=== PATIENT | female | born 1940 | race Caucasian/White ===

== ENCOUNTER 2022-02-15 07:24 | Inpatient (IN) | payer MEDICARE ==
--- NOTE | 2022-02-15 07:44 | ED ---
General Adult HPI - General Stated complaint: Fall Time Seen by Provider: 02/15/22 07:28 Source: patient, EMS, RN notes reviewed, old records reviewed Mode of arrival: EMS Limitations: no limitations - History of Present Illness Initial comments: 81-year-old female presents from half-way status post fall syncopal episode. Patient had apparently been using toilet to have a bowel movement and passed out striking her head. She was on the bathroom floor for approximately 30 minutes. Upon paramedics arrival they had noted a hematoma to the forehead and abrasion to the bridge of the nose. She was apparently in half-way for rehabilitation. Patient denied chest pain. Denied abdominal pain. Denies focal numbness or weakness. Initial pressure was in the 80s this responded to fluid bolus. - Related Data Allergies Allergy/AdvReac Type Severity Reaction Status Date / Time aspirin Allergy Rash/Hives Verified 02/15/22 07:40 iodine Allergy Rash/Hives Verified 02/15/22 07:43 Review of Systems ROS Statement: Those systems with pertinent positive or pertinent negative responses have been documented in the HPI. ROS Other: All systems not noted in ROS Statement are negative. General Exam Limitations: no limitations General appearance: alert, in no apparent distress Head exam: Present: other (Hematoma and abrasion to the forehead, skin avulsion to the bridge of the nose) Eye exam: Present: normal appearance, PERRL ENT exam: Present: normal exam Neck exam: Present: normal inspection, other (C-collar placed by paramedics) Respiratory exam: Present: normal lung sounds bilaterally. Absent: respiratory distress, wheezes Cardiovascular Exam: Present: regular rate, normal rhythm GI/Abdominal exam: Present: soft. Absent: distended, tenderness, guarding Extremities exam: Present: normal inspection, normal capillary refill. Absent: pedal edema, calf tenderness Neurological exam: Present: alert, oriented X3, CN II-XII intact. Absent: motor sensory deficit Psychiatric exam: Present: normal affect, normal mood Skin exam: Present: warm, dry Course Vital Signs 02/15/22 02/15/22 07:26 08:31 Temperature 97.5 F L Pulse Rate 79 85 Respiratory 16 18 Rate Blood Pressure 111/61 92/51 O2 Sat by Pulse 94 L 94 L Oximetry EKG Findings - EKG Comments: EKG Findings:: EKG: Sinus rhythm with a rate of 77, NV interval 150, QRS duration 91, QTC 404 tremor artifact predominantly in the inferior leads no ST segment elevation. Medical Decision Making - Medical Decision Making 81-year-old female presenting from half-way with syncopal episode, head injury, and hypotension. Patient was noted by paramedics to be hypotensive with head trauma. Head CT performed this is negative for intracranial hemorrhage or mass effect. Cervical spine negative for displaced fracture or subluxation. Patient has a significantly elevated white blood cell count at 23. Stable hemoglobin. She has a BUN and creatinine which are elevated, creatinine 1.71, no baseline for comparison. She has a minimally elevated troponin is 0.039. She does not have any active chest pain. This may be elevated secondary to kidney dysfunction. This level will be trended. Her chest x-ray is clear of arch consolidation. Pelvis x-ray negative for fracture or acute bony abnormality. She is started on IV hydration and IV antibiotics for suspected infection, possible urinary tract infection. She will be admitted to [facility], Gera is aware. - Lab Data Result diagrams: 02/15/22 08:03 02/15/22 08:03 Lab Results 02/15/22 02/15/22 02/15/22 Range/Units 08:03 08:03 08:03 WBC 23.4 H (3.8-10.6) k/uL RBC 4.44 (3.80-5.40) m/uL Hgb 13.7 (11.4-16.0) gm/dL Hct 41.3 (34.0-46.0) % MCV 93.1 (80.0-100.0) fL MCH 31.0 (25.0-35.0) pg MCHC 33.2 (31.0-37.0) g/dL RDW 12.7 (11.5-15.5) % Plt Count 186 (150-450) k/uL MPV 9.5 Neutrophils % 91 % Lymphocytes % 3 % Monocytes % 4 % Eosinophils % 1 % Basophils % 1 % Neutrophils # 21.3 H (1.3-7.7) k/uL Lymphocytes # 0.6 L (1.0-4.8) k/uL Monocytes # 0.9 (0-1.0) k/uL Eosinophils # 0.2 (0-0.7) k/uL Basophils # 0.3 H (0-0.2) k/uL PT 10.4 (9.0-12.0) sec INR 0.9 (<1.2) APTT 22.7 (22.0-30.0) sec Sodium 131 L (137-145) mmol/L Potassium 3.7 (3.5-5.1) mmol/L Chloride 89 L (98-107) mmol/L Carbon Dioxide 37 H (22-30) mmol/L Anion Gap 5 mmol/L BUN 67 H (7-17) mg/dL Creatinine 1.71 H (0.52-1.04) mg/dL Est GFR (CKD-EPI)AfAm 32 (>60 ml/min/1.73 sqM) Est GFR (CKD-EPI)NonAf 28 (>60 ml/min/1.73 sqM) Glucose 96 (74-99) mg/dL Plasma Lactic Acid Boyd (0.7-2.0) mmol/L Calcium 9.1 (8.4-10.2) mg/dL Magnesium 1.9 (1.6-2.3) mg/dL Total Bilirubin 0.7 (0.2-1.3) mg/dL AST 43 H (14-36) U/L ALT 54 H (4-34) U/L Alkaline Phosphatase 87 (38-126) U/L Troponin I (0.000-0.034) ng/mL Total Protein 5.9 L (6.3-8.2) g/dL Albumin 3.4 L (3.5-5.0) g/dL 02/15/22 02/15/22 Range/Units 08:03 08:03 WBC (3.8-10.6) k/uL RBC (3.80-5.40) m/uL Hgb (11.4-16.0) gm/dL Hct (34.0-46.0) % MCV (80.0-100.0) fL MCH (25.0-35.0) pg MCHC (31.0-37.0) g/dL RDW (11.5-15.5) % Plt Count (150-450) k/uL MPV Neutrophils % % Lymphocytes % % Monocytes % % Eosinophils % % Basophils % % Neutrophils # (1.3-7.7) k/uL Lymphocytes # (1.0-4.8) k/uL Monocytes # (0-1.0) k/uL Eosinophils # (0-0.7) k/uL Basophils # (0-0.2) k/uL PT (9.0-12.0) sec INR (<1.2) APTT (22.0-30.0) sec Sodium (137-145) mmol/L Potassium (3.5-5.1) mmol/L Chloride (98-107) mmol/L Carbon Dioxide (22-30) mmol/L Anion Gap mmol/L BUN (7-17) mg/dL Creatinine (0.52-1.04) mg/dL Est GFR (CKD-EPI)AfAm (>60 ml/min/1.73 sqM) Est GFR (CKD-EPI)NonAf (>60 ml/min/1.73 sqM) Glucose (74-99) mg/dL Plasma Lactic Acid Boyd 1.1 (0.7-2.0) mmol/L Calcium (8.4-10.2) mg/dL Magnesium (1.6-2.3) mg/dL Total Bilirubin (0.2-1.3) mg/dL AST (14-36) U/L ALT (4-34) U/L Alkaline Phosphatase (38-126) U/L Troponin I 0.039 H* (0.000-0.034) ng/mL Total Protein (6.3-8.2) g/dL Albumin (3.5-5.0) g/dL Disposition Clinical Impression: Dehydration, MICHAEL (acute kidney injury), Syncope, Troponin level elevated Disposition: ADMITTED IP TO THIS HOSP Condition: Stable Is patient prescribed a controlled substance at d/c from ED?: No Referrals: Francisco De Oliveira MD [Primary Care Provider] - 1-2 days Time of Disposition: 09:33
[2022-02-15] MEDS ORDERED: SODIUM CHLORIDE 0.9% 500 ML 500 ML IV ONE (08:06)
[2022-02-15 08:11] LABS: Basophils # (A) 0.3 k/uL (0-0.2); Basophils % (A) 1 %; Eosinophils # (A) 0.2 k/uL (0-0.7); Eosinophils % (A) 1 %; HCT 41.3 % (34.0-46.0); HGB 13.7 gm/dL (11.4-16.0); Lymphocytes # (A) 0.6 k/uL (1.0-4.8); Lymphocytes % (A) 3 %; MCHC 33.2 g/dL (31.0-37.0); MCV 93.1 fL (80.0-100.0); Mean Platelet Volume 9.5; Monocytes # (A) 0.9 k/uL (0-1.0); Monocytes % (A) 4 %; Neutrophils # (A) 21.3 k/uL (1.3-7.7); Neutrophils % (A) 91 %; Platelet Count 186 k/uL (150-450); RBC 4.44 m/uL (3.80-5.40); RDW 12.7 % (11.5-15.5); WBC 23.4 k/uL (3.8-10.6)
[2022-02-15 08:20] LABS: INR 0.9 (<1.2); Partial Thromboplastin Time 22.7 sec (22.0-30.0); Prothrombin Time 10.4 sec (9.0-12.0)
[2022-02-15 08:22] LABS: Albumin 3.4 g/dL (3.5-5.0); Calcium 9.1 mg/dL (8.4-10.2); Magnesium 1.9 mg/dL (1.6-2.3); Potassium 3.7 mmol/L (3.5-5.1); Total Bilirubin 0.7 mg/dL (0.2-1.3); Total Protein 5.9 g/dL (6.3-8.2)
[2022-02-15] MEDS ORDERED: cefTRIAXone IN SWFI 1,000 MG/10 ML SYRINGE IVP STA (08:45)
--- NOTE | 2022-02-15 08:53 | CT ---
EXAMINATION TYPE: CT brain [facility]tega DATE OF EXAM: 02/15/2022 COMPARISON: None available HISTORY: Trauma, Fall CT DLP: 1372.3 mGycm Automated exposure control for dose reduction was used. TECHNIQUE: CT scan of the head and cervical spine are performed without contrast. FINDINGS: Brain: Bilateral cerebral periventricular and subcortical white matter hypodensities likely representing chr onic microvascular ischemic changes. Scattered arterial atherosclerotic calcification. Brain volume l oss changes, likely age-related. No acute intracranial hemorrhage or gross acute cortical infarct. No midline shift or herniation. Unremarkable basal cisterns, sella and CP angles. No gross space-occupying lesion or mass effect. No gross orbital abnormality. Right frontal scalp swelling/hematoma. Mild mucosal thickening of the left maxillary sinus and left anterior ethmoid air cells. Clear mastoid air cells. Diffuse osteopenia. No definite acute calvarial bone fracture identified. Cervical spine: Osteopenia. T5 vertebral body collapse, not completely included scan and possibly chronic, please cor relate clinically. Questionable subtle linear lucency at the most anterior superior aspect of C7 vert ebral body which could represent an artifact or a subtle nondisplaced fracture. This could be acute o r chronic. No other definite vertebral body collapse or acute displaced fracture. Unremarkable atlantoaxial and atlantooccipital articulations. No facet dislocation or significant sub luxation. Degenerative changes of the cervical spine with multilevel opposing endplate osteophytosis, degenerated discs and uncovertebral osteoarthropathy, most evident at C5-6 and C6-7 levels. Severe m ultilevel facet osteoarthropathy is also noted. Anterolisthesis of C3 over C4, C4 over C5 and C7 over T1, likely degenerative. Right C3-4, severe rig ht C4-5, severe left C5-6 and moderate bilateral 6 7 neuroforaminal stenosis. Mild bony spinal canal stenosis is seen at C6-7 level. Questionable focal bulge measuring 6 mm arising from the left vocal c ord, for ENT consultation. Scattered arterial atherosclerotic calcifications. COPD changes are seen i n the lung apex bilaterally. IMPRESSION: 1. No acute intracranial posttraumatic sequela or acute calvarial bone fracture. 2. Small right frontal scalp swelling/hematoma. 3. Brain volume loss changes and chronic microvascular ischemic changes as described above. 4. T5 vertebral body collapse, apparently chronic, please correlate clinically. 5. Questionable artifact versus subtle nondisplaced fracture of the anterior superior aspect of C7 ve rtebral body, which could be acute or chronic, please correlate clinically. 5. No other definite traumatic bony injury of the cervical spine. 6. Suspected small lesion arising from the left vocal cord which could represent a polyp however othe r neoplastic lesion cannot be excluded. Recommend ENT consultation. 7. Degenerative changes of cervical spine and other incidental findings as described above.
--- NOTE | 2022-02-15 08:55 | XR ---
EXAMINATION TYPE: XR chest 1V portable DATE OF EXAM: 02/15/2022 COMPARISON: None INDICATION: Syncope fall TECHNIQUE: Single frontal view of the chest is obtained. FINDINGS: The heart size is normal. The pulmonary vasculature is normal. The lungs are clear. There is some hyperinflation present. No acute fractures are evident. No pneumothorax is evident. IMPRESSION: 1. No acute posttraumatic change. 2. No acute pulmonary process.
--- NOTE | 2022-02-15 08:55 | XR ---
EXAMINATION TYPE: XR pelvis AP view DATE OF EXAM: 02/15/2022 COMPARISON: None HISTORY: Fall, pain TECHNIQUE: AP pelvis FINDINGS: Femoral heads articulate with the acetabulum. Mild joint space narrowing is present. Symphy sis pubis and sacroiliac joints are normal. Nonspecific bowel gas is present within the pelvis. No ac [place] fractures or dislocations are evident. IMPRESSION: 1. No acute osseous abnormality. Pelvis.
[2022-02-15] MEDS ORDERED: NALOXONE 0.4 MG/ML 1 ML VIAL IV PRN ×2 (09:25→11:22)
[2022-02-15] MEDS ORDERED: MORPHINE SULFATE 4 MG/ML SYRINGE IV PRN (09:25)
[2022-02-15 10:13] LABS: Appearance,Urine Cloudy (Clear); Bacteria,Urine Rare /hpf; Bilirubin,Urine Negative (Negative); Blood,Urine Trace (Negative); Color,Urine Yellow; Glucose,Urine (UA) Negative (Negative); Granular Casts,Urine 3 /lpf (0); Hyaline Casts,Urine 38 /lpf (0-2); Ketones,Urine Negative (Negative); Leukocyte Esterase,Urine Negative (Negative); Mucus,Urine Rare /hpf; Nitrite,Urine Negative (Negative); Protein,Urine Trace (Negative); RBC,Urine 1 /hpf (0-5); Specific Gravity,Urine 1.017 (1.001-1.035); Urobilinogen,Urine <2.0 mg/dL (<2.0); WBC,Urine 3 /hpf (0-5)
[2022-02-15] MEDS: SODIUM CHLORIDE 0.9% 1,000 ML IV SCH ×2 (10:14→18:50)
[2022-02-15] MEDS ORDERED: LACTATED RINGERS 1,000 ML IV SCH (11:30)
--- NOTE | 2022-02-15 11:47 | P.HPIM ---
History of Present Illness Chief Complaint: Loss of consciousness This is a very pleasant 81-year-old female who was brought to [facility] Department by EMS for evaluation of syncope. Patient has history of COPD on home oxygen, hypertension, hypothyroidism. Home medications include Norvasc, lisinopril, Cardizem, Plavix, inhale corticosteroids, dilators and levothyroxine. Patient states that about a week ago she was admitted at [facility] in [place] for respiratory issues, COPD exacerbation. About 3 days prior to this admission she was discharged to senior care facility on Lasix prednisone, and antibiotics. Prior to that she would typically not take Lasix. Patient states that she was in usual state of health yesterday until in the evening she had a fish sandwich. After that overnight she started experiencing some cramping in the lower part of her abdomen. She did not have any diarrhea. She denies any fever or chills or any respiratory complaints. No dysuria or foul-smelling urine or hematuria. This morning she went to the bathroom and experienced nausea and was retching, no vomiting when she started feeling l ightheaded with hot flashes and she collapsed and blacked out. Since she's been residing in a senior care facility, EMS was called and she was transferred to ER. En route, EMS measure her systolic blood pressure 7080s. She was given bolus of IV fluids which led to quick improvement in her blood pressure. Patient stated that she did not lose consciousness completely, just feeling very lightheaded. She was not having any confusion. She did not have any involuntary movement of bowels or incontinence of urine. No tongue biting no seizure-like activity described. She denies any headache vision changes scintillations chest pain or palpitations before and after the event. During my interview patient stated that she is currently feeling much better after IV fluids and does not have any complaints. She unfortunately hurt her head with this fall and she does have small hematoma on the right side of her forehead but she currently denies any headache or vision changes. In the emergency department, found to have a blood cell count 24,000 with predominance of neutrophils. Stable hemoglobin. Creatinine of 1.7 beats BUNs of 67 normal anion gap serum bicarbonate of 37 and sodium 10/30/1929 and chloride of 89. Patient denied any previous history of renal insufficiency. Imaging: CT of the head without any acute intracranial changes. She does have small right frontal scalp hematoma. CT of the cervical and thoracic spine showing T5 vertebral body collapse chronically in nature. Questionable artifact versus subtle nondisplaced fracture and C7 vertebral body which could be acute or chronic clinical correlation advised. Other changes as per report Review of Systems Review of system is negative except as mentioned in HPI Past Medical History Past Medical History: Cancer, COPD, GERD/Reflux, Hyperlipidemia, Hypertension, Myocardial Infarction ([place]), Thyroid Disorder, Vascular Disorder Additional Past Medical History / Comment(s): Raynaud's syndrome, glaucoma, osteoporpsos, SVT, breast cancer History of Any Multi-Drug Resistant Organisms: None Reported Additional Past Surgical History / Comment(s): lumpectomy in left breast "long time ago" Past Psychological History: Anxiety Smoking Status: Former smoker Past Alcohol Use History: None Reported Past Drug Use History: None Reported Medications and Allergies Home Medications Medication Instructions Recorded Confirmed Type ALPRAZolam [Xanax] 0.25 mg PO Q8H PRN 02/15/22 02/15/22 History Acetaminophen Tab [Tylenol] 650 mg PO Q4H PRN MDD 3000mg 02/15/22 02/15/22 History Albuterol Sulfate [Ventolin HFA] 2 puff INHALATION RT-DAILY 02/15/22 02/15/22 History Atorvastatin [Lipitor] 40 mg PO HS 02/15/22 02/15/22 History Benzonatate [Tessalon Perles] 200 mg PO Q8H PRN 02/15/22 02/15/22 History Budesonide [Pulmicort] 0.5 mg INHALATION RT-Q12H 02/15/22 02/15/22 History Calcium Carbonate [Tums] 500 mg PO Q4H PRN 02/15/22 02/15/22 History Clopidogrel Bisulfate [Plavix] 75 mg PO DAILY 02/15/22 02/15/22 History Diltiazem Cd [Cardizem CD] 180 mg PO DAILY 02/15/22 02/15/22 History Docusate [Colace] 100 mg PO Q12H PRN 02/15/22 02/15/22 History Doxycycline Monohydrate [Monodox] 100 mg PO BID 02/15/22 02/15/22 History Fluticasone Nasal [place] [Flonase 1 spr EA NOSTRIL DAILY 02/15/22 02/15/22 History Nasal [place]] Fluticasone/Vilanterol [Breo 1 puff INHALATION RT-DAILY 02/15/22 02/15/22 History Ellipta 100-25 Mcg Inhaler] Formoterol Fumarate Capsule 12mcg 1 cap INHALATION RT-BID 02/15/22 02/15/22 History Inhaler Furosemide [Lasix] 20 mg PO BID 02/15/22 02/15/22 History Latanoprost [Xalatan 0.005%] 1 drop BOTH EYES HS 02/15/22 02/15/22 History Levothyroxine Sodium [Levoxyl] 50 mcg PO DAILY 02/15/22 02/15/22 History Lisinopril [Prinivil] 10 mg PO DAILY 02/15/22 02/15/22 History Montelukast [Singulair] 10 mg PO HS 02/15/22 02/15/22 History Naproxen 500 mg PO Q12H PRN 02/15/22 02/15/22 History Nystatin [Nystatin Oral Susp] 500,000 unit PO QID 02/15/22 02/15/22 History Pantoprazole [Protonix] 40 mg PO DAILY 02/15/22 02/15/22 History Tiotropium [place] [Spiriva] 1 cap INHALATION RT-DAILY 02/15/22 02/15/22 History amLODIPine [Norvasc] 5 mg PO DAILY 02/15/22 02/15/22 History guaiFENesin [guaiFENesin Oral 200 mg PO HS PRN 02/15/22 02/15/22 History Solution] methylPREDNISolone [Medrol Dose See Taper PO DIRECTED 02/15/22 02/15/22 History Pack] Allergies Allergy/AdvReac Type Severity Reaction Status Date / Time aspirin Allergy Rash/Hives Verified 02/15/22 10:40 iodine Allergy Rash/Hives--"surgical Verified 02/15/22 10:40 soap" per patient Physical Exam Vitals: Vital Signs Temp Pulse Resp BP Pulse Ox 02/15/22 10:13 81 18 110/67 100 02/15/22 08:31 85 18 92/51 94 L 02/15/22 07:26 97.5 F L 79 16 111/61 94 L Intake and Output 02/14/22 02/15/22 02/15/22 22:59 06:59 14:59 Other: Weight 59.058 kg Awake alert oriented 3 Head and neck: Small right sided frontal scalp hematoma no skull depressions or excoriations Anicteric sclera and oropharyngeal mucosa moist without any lesions no neck masses no JVD Neck supple without any point tenderness without rigidity Lungs: Clear to auscultation Cardiovascular: Regular rhythm and rate S1 posterior Abdomen: Bowel sounds present throughout, abdomen is soft nontender nondistended no organomegaly no masses, no suprapubic tenderness no flank tenderness right upper quadrant tenderness Extremities: No peripheral edema no cyanosis warm well perfused DP pulses present bilateral Musculoskeletal: No deformities Neurological: Awake alert oriented 3, cranial nerves II through XII intact, motor strength is 5 out of 5 in upper and lower extremities proximally and distally, no ankle clonus , nontender reflexes laxer bilateral, sensitivity to light touch in upper limits immitis preserved no asterixis [id number] intact Results CBC & Chem 7: 02/15/22 08:03 02/15/22 08:03 Labs: Abnormal Lab Results - Last 24 Hours (Table) 02/15/22 02/15/22 02/15/22 Range/Units 08:03 08:03 08:03 WBC 23.4 H (3.8-10.6) k/uL Neutrophils # 21.3 H (1.3-7.7) k/uL Lymphocytes # 0.6 L (1.0-4.8) k/uL Basophils # 0.3 H (0-0.2) k/uL Sodium 131 L (137-145) mmol/L Chloride 89 L (98-107) mmol/L Carbon Dioxide 37 H (22-30) mmol/L BUN 67 H (7-17) mg/dL Creatinine 1.71 H (0.52-1.04) mg/dL AST 43 H (14-36) U/L ALT 54 H (4-34) U/L Troponin I 0.039 H* (0.000-0.034) ng/mL Total Protein 5.9 L (6.3-8.2) g/dL Albumin 3.4 L (3.5-5.0) g/dL Urine Appearance (Clear) Urine Protein (Negative) Urine Blood (Negative) Urine Bacteria (None) /hpf Hyaline Casts (0-2) /lpf Urine Mucus (None) /hpf 02/15/22 Range/Units 09:35 WBC (3.8-10.6) k/uL Neutrophils # (1.3-7.7) k/uL Lymphocytes # (1.0-4.8) k/uL Basophils # (0-0.2) k/uL Sodium (137-145) mmol/L Chloride (98-107) mmol/L Carbon Dioxide (22-30) mmol/L BUN (7-17) mg/dL Creatinine (0.52-1.04) mg/dL AST (14-36) U/L ALT (4-34) U/L Troponin I (0.000-0.034) ng/mL Total Protein (6.3-8.2) g/dL Albumin (3.5-5.0) g/dL Urine Appearance Cloudy H (Clear) Urine Protein Trace H (Negative) Urine Blood Trace H (Negative) Urine Bacteria Rare H (None) /hpf Hyaline Casts 38 H (0-2) /lpf Urine Mucus Rare H (None) /hpf Assessment and Plan Assessment: #Fall and presyncope Patient presents with hypotension, component of vasovagal reaction, orthostasis in the setting of diuresis dehydration multiple blood pressure medications Rule out sepsis, septic workup underway Improving with IV fluids Continue IV fluids Hold blood pressure medications, hold Lasix Check d-dimer #SIRS, leukocytosis rule out sepsis Reactive due to use of systemic steroids and dehydration Septic workup, blood cultures UA with cultures Chest x-ray without acute findings Imaging of the abdomen will be needed due to some discomfort Continue antibiotics, infectious disease consultation #Elevated troponin No active chest pain No acute EKG findings The patient asymptomatic trendtroponin, cardiology consultation Echocardiogram Keep on telemetry Continue home Plavix, CT of the head no active bleeding #Acute kidney injury Suspected to be prerenal Continue IV fluids UA: No significant proteinuria no RBCs or WBCs Ultrasound of the kidneys, bladder scan Nephrology consultation #Chronic hypoxic respiratory failure COPD without acute exacerbation, on home oxygen 34 liters Continue oxygen, continue nebulizers #Elevated liver enzymes Normal bilirubin and alkaline phosphatase Trend liver enzymes, may need ultrasound #Abdominal cramping X-ray of abdomen ordered, consider to escalate imaging #Closed head trauma Due to fall CT of the head and cervical spine obtained Consider or to/neurosurgery consult #Hypothyroidism Continue levothyroxine #Hypertension Hold home blood pressure medications due to hypotension DVT prophylaxis SCDs Patient will need more than 2 minutes hospital stay
--- NOTE | 2022-02-15 14:33 | XR ---
EXAMINATION TYPE: XR abdomen complete w decub DATE OF EXAM: 02/15/2022 COMPARISON: None INDICATION: Abdomen pain with nausea TECHNIQUE: Abdomen is examined in the upright and supine views . A decubitus view is obtained which a ppear somewhat oblique. FINDINGS: There is a normal bowel gas pattern. No suspicious air-fluid levels are evident. No free air is evide nt. No mass effect is evident. Psoas margins are normal. No organomegaly is present. Vertebroplasty of L2 is evident. Minimal right pleural effusion may be present. IMPRESSION: 1. Nonspecific abdomen. 2. Minimal right pleural effusion
[2022-02-15] MEDS: AMPICILLIN-SULBACTAM 3 GM in SODIUM CHLORIDE 0.9% 100 ML IVPB SCH ×3 (15:41→23:15)
[2022-02-15] MEDS: MIDODRINE 5 MG TAB PO SCH (18:50)
[2022-02-15] MEDS: MONTELUKAST 10 MG TAB PO SCH (19:59)
[2022-02-15] MEDS: LATANOPROST 0.005% OPHTH DROPS 2.5 ML BTL BOTH EYES SCH (19:59)
[2022-02-15] MEDS: BUDESONIDE 0.5 MG/2 ML NEBU INHALATION SCH (20:45)
[2022-02-15] MEDS ORDERED: ATORVASTATIN 40 MG TAB PO SCH (21:00)
[2022-02-15] MEDS: IPRATROPIUM-ALBUTEROL 3 ML NEB INHALATION PRN (23:21)
--- NOTE | 2022-02-16 00:01 | P.CONS ---
History of Present Illness - Reason for Consult Consult date: 02/15/22 Sepsis Requesting physician: Dwight Gilman - Chief Complaint Abdominal bloating and pain x one day - History of Present Illness Patient is 81-year female presenting to the ER after apparently the patient did have a fall/syncopal episode, patient mention she was having some gas pain and apparently did get some medication without relief patient mention she went to the bathroom to have a bowel movement and apparently the patient did passed out patient was on the bathroom floor for approximately 30 minutes EMS was called and patient was noticed to have a hematoma to the forehead and abrasion to the bridge of the nose patient subsequently was brought into the ER on arrival to the ER patient was afebrile and no fever had been recorded subsequently patient did have white count of 23,000 with a left shift BUN and creatinine has been elevated liver exams are mildly elevated urine was not significantly positive patient did have a CT of the head that was negative for any bleed chest x-ray no acute pulmonary process patient also have abdominal x- ray nonspecific abdominal minimal right pleural effusion patient was admitted to the hospital infectious disease was consulted concerning for sepsis because of elevated white count patient is currently complaining of some abdominal discomfort more of a dull aching pain unable to quantify it any further did have some nausea but no vomiting has been complaining of constipation no diarrhea and no urinary symptoms Review of Systems Positive point has been mentioned in the HPI rest of the systems are negative Past Medical History Past Medical History: Cancer, COPD, GERD/Reflux, Hyperlipidemia, Hypertension, Myocardial Infarction ([place]), Thyroid Disorder, Vascular Disorder Additional Past Medical History / Comment(s): Raynaud's syndrome, glaucoma, osteoporpsos, SVT, breast cancer Last Myocardial Infarction Date:: 2006 History of Any Multi-Drug Resistant Organisms: None Reported Past Surgical History: Appendectomy, Hysterectomy, Tonsillectomy Additional Past Surgical History / Comment(s): lumpectomy in left breast "long time ago" Past Anesthesia/Blood Transfusion Reactions: No Reported Reaction Smoking Status: Former smoker - Past Family History Daughter(s) Family Medical History: Cancer Medications and Allergies Home Medications Medication Instructions Recorded Confirmed Type ALPRAZolam [Xanax] 0.25 mg PO Q8H PRN 02/15/22 02/15/22 History Acetaminophen Tab [Tylenol] 650 mg PO Q4H PRN MDD 3000mg 02/15/22 02/15/22 History Albuterol Sulfate [Ventolin HFA] 2 puff INHALATION RT-DAILY 02/15/22 02/15/22 History Atorvastatin [Lipitor] 40 mg PO HS 02/15/22 02/15/22 History Benzonatate [Tessalon Perles] 200 mg PO Q8H PRN 02/15/22 02/15/22 History Budesonide [Pulmicort] 0.5 mg INHALATION RT-Q12H 02/15/22 02/15/22 History Calcium Carbonate [Tums] 500 mg PO Q4H PRN 02/15/22 02/15/22 History Clopidogrel Bisulfate [Plavix] 75 mg PO DAILY 02/15/22 02/15/22 History Diltiazem Cd [Cardizem CD] 180 mg PO DAILY 02/15/22 02/15/22 History Docusate [Colace] 100 mg PO Q12H PRN 02/15/22 02/15/22 History Doxycycline Monohydrate [Monodox] 100 mg PO BID 02/15/22 02/15/22 History Fluticasone Nasal [place] [Flonase 1 spr EA NOSTRIL DAILY 02/15/22 02/15/22 History Nasal [place]] Fluticasone/Vilanterol [Breo 1 puff INHALATION RT-DAILY 02/15/22 02/15/22 History Ellipta 100-25 Mcg Inhaler] Formoterol Fumarate Capsule 12mcg 1 cap INHALATION RT-BID 02/15/22 02/15/22 History Inhaler Furosemide [Lasix] 20 mg PO BID 02/15/22 02/15/22 History Latanoprost [Xalatan 0.005%] 1 drop BOTH EYES HS 02/15/22 02/15/22 History Levothyroxine Sodium [Levoxyl] 50 mcg PO DAILY 02/15/22 02/15/22 History Lisinopril [Prinivil] 10 mg PO DAILY 02/15/22 02/15/22 History Montelukast [Singulair] 10 mg PO HS 02/15/22 02/15/22 History Naproxen 500 mg PO Q12H PRN 02/15/22 02/15/22 History Nystatin [Nystatin Oral Susp] 500,000 unit PO QID 02/15/22 02/15/22 History Pantoprazole [Protonix] 40 mg PO DAILY 02/15/22 02/15/22 History Tiotropium [place] [Spiriva] 1 cap INHALATION RT-DAILY 02/15/22 02/15/22 History amLODIPine [Norvasc] 5 mg PO DAILY 02/15/22 02/15/22 History guaiFENesin [guaiFENesin Oral 200 mg PO HS PRN 02/15/22 02/15/22 History Solution] methylPREDNISolone [Medrol Dose See Taper PO DIRECTED 02/15/22 02/15/22 History Pack] Allergies Allergy/AdvReac Type Severity Reaction Status Date / Time aspirin Allergy Rash/Hives Verified 02/15/22 10:40 iodine Allergy Rash/Hives--"surgical Verified 02/15/22 10:40 soap" per patient Physical Exam Vitals: Vital Signs Temp Pulse Pulse Resp BP BP Pulse Ox 02/15/22 12:00 97.8 F 91 20 100/59 97 02/15/22 11:30 71 18 100/66 97 02/15/22 10:13 81 18 110/67 100 02/15/22 08:31 85 18 92/51 94 L 02/15/22 07:26 97.5 F L 79 16 111/61 94 L Intake and Output 02/14/22 02/15/22 02/15/22 22:59 06:59 14:59 Other: Weight 59.058 kg GENERAL DESCRIPTION: Elderly female lying in bed, no distress. No tachypnea or accessory muscle of respiration use. HEENT: Shows Pallor , no scleral icterus. Oral mucous membrane is dry. No pharyngeal erythema or thrush NECK: Trachea central, no thyromegaly. LUNGS: Unlabored breathing. Clear to auscultation anteriorly. No wheeze or cr ackle. HEART: S1, S2, regular rate and rhythm. No loud murmur ABDOMEN: Soft, mild abdominal distention and tenderness EXTREMITIES: No edema of feet. SKIN: No rash, no masses palpable. NEUROLOGICAL: The patient is awake, alert, oriented x3, mood and affect normal. Results CBC & Chem 7: 02/15/22 08:03 02/15/22 08:03 Labs: Abnormal Lab Results - Last 24 Hours (Table) 02/15/22 02/15/22 02/15/22 Range/Units 08:03 08:03 08:03 WBC 23.4 H (3.8-10.6) k/uL Neutrophils # 21.3 H (1.3-7.7) k/uL Lymphocytes # 0.6 L (1.0-4.8) k/uL Basophils # 0.3 H (0-0.2) k/uL Sodium 131 L (137-145) mmol/L Chloride 89 L (98-107) mmol/L Carbon Dioxide 37 H (22-30) mmol/L BUN 67 H (7-17) mg/dL Creatinine 1.71 H (0.52-1.04) mg/dL AST 43 H (14-36) U/L ALT 54 H (4-34) U/L Troponin I 0.039 H* (0.000-0.034) ng/mL Total Protein 5.9 L (6.3-8.2) g/dL Albumin 3.4 L (3.5-5.0) g/dL Urine Appearance (Clear) Urine Protein (Negative) Urine Blood (Negative) Urine Bacteria (None) /hpf Hyaline Casts (0-2) /lpf Urine Mucus (None) /hpf 02/15/22 Range/Units 09:35 WBC (3.8-10.6) k/uL Neutrophils # (1.3-7.7) k/uL Lymphocytes # (1.0-4.8) k/uL Basophils # (0-0.2) k/uL Sodium (137-145) mmol/L Chloride (98-107) mmol/L Carbon Dioxide (22-30) mmol/L BUN (7-17) mg/dL Creatinine (0.52-1.04) mg/dL AST (14-36) U/L ALT (4-34) U/L Troponin I (0.000-0.034) ng/mL Total Protein (6.3-8.2) g/dL Albumin (3.5-5.0) g/dL Urine Appearance Cloudy H (Clear) Urine Protein Trace H (Negative) Urine Blood Trace H (Negative) Urine Bacteria Rare H (None) /hpf Hyaline Casts 38 H (0-2) /lpf Urine Mucus Rare H (None) /hpf Assessment and Plan (1) Leukocytosis Current Visit: Yes Status: Acute Code(s): D72.829 - ELEVATED WHITE BLOOD CELL COUNT, UNSPECIFIED SNOMED Code(s): 966044071 Plan: 1patient presented to hospital with a syncopal episode this patient did have a fall in the bathroom prior to that the patient was complaining of abdominal bloating and gas patient did have mild distention and slightly tender likely concerning for abdominal source and will need to cover for the enteric gram- negative katharine 2-we will start the patient on Unasyn 3 g every 6 hours- 3-we will check CT of abdominal pelvis with oral contrast only because of elevated creatinine and no use of IV contrast 4-gentle IV fluid We will follow on clinical condition and cultures to further adjust medication if needed Thank you for this consultation will follow this patient along with you Time with Patient: Greater than 30
[2022-02-16] MEDS: SODIUM CHLORIDE 0.9% 1,000 ML IV SCH ×2 (02:28→18:44)
[2022-02-16] MEDS: BARIUM SULFATE 450 ML ORAL.SUSP BOTTLE PO PRN ×2 (04:06→06:52)
[2022-02-16] MEDS: AMPICILLIN-SULBACTAM 3 GM in SODIUM CHLORIDE 0.9% 100 ML IVPB SCH ×3 (06:08→23:10)
[2022-02-16] MEDS ORDERED: LEVOTHYROXINE 50 MCG TAB PO SCH (06:30)
[2022-02-16 06:38] LABS: Basophils % (A) 0 %; Eosinophils # (A) 0.1 k/uL (0-0.7); Eosinophils % (A) 0 %; HCT 33.1 % (34.0-46.0); HGB 11.1 gm/dL (11.4-16.0); Lymphocytes # (A) 0.5 k/uL (1.0-4.8); Lymphocytes % (A) 4 %; MCHC 33.6 g/dL (31.0-37.0); MCV 95.2 fL (80.0-100.0); Mean Platelet Volume 8.6; Monocytes # (A) 0.7 k/uL (0-1.0); Monocytes % (A) 6 %; Neutrophils # (A) 10.4 k/uL (1.3-7.7); Neutrophils % (A) 88 %; Platelet Count 140 k/uL (150-450); RBC 3.48 m/uL (3.80-5.40); RDW 13.6 % (11.5-15.5); WBC 11.7 k/uL (3.8-10.6)
[2022-02-16 06:49] LABS: ALT 50 U/L (4-34); AST 43 U/L (14-36); African American GFR (CKD) 70 (>60 ml/min/1.73 sqM); Albumin 2.6 g/dL (3.5-5.0); Alkaline Phosphatase 71 U/L (38-126); Anion Gap 2 mmol/L; Blood Urea Nitrogen 38 mg/dL (7-17); Calcium 8.3 mg/dL (8.4-10.2); Carbon Dioxide 32 mmol/L (22-30); Chloride 102 mmol/L (98-107); Glucose 68 mg/dL (74-99); Magnesium 1.8 mg/dL (1.6-2.3); Non-African American GFR(CKD) 61 (>60 ml/min/1.73 sqM); Phosphorus 2.4 mg/dL (2.5-4.5); Potassium 3.6 mmol/L (3.5-5.1); Sodium 136 mmol/L (137-145); Total Bilirubin 0.5 mg/dL (0.2-1.3); Total Protein 4.9 g/dL (6.3-8.2)
[2022-02-16] MEDS: BUDESONIDE 0.5 MG/2 ML NEBU INHALATION SCH ×2 (08:18→21:42)
[2022-02-16] MEDS: PANTOPRAZOLE 40 MG TABLET PO SCH (08:22)
[2022-02-16] MEDS: CLOPIDOGREL 75 MG TAB PO SCH (08:22)
[2022-02-16] MEDS: MIDODRINE 5 MG TAB PO SCH ×2 (08:22→17:04)
[2022-02-16] MEDS ORDERED: FUROSEMIDE 10 MG/ML 4 ML VIAL IV STA (08:50)
--- NOTE | 2022-02-16 08:59 | CT ---
EXAMINATION TYPE: CT abdomen pelvis wo con DATE OF EXAM: 02/16/2022 COMPARISON: No previous CT scan is available for comparison HISTORY: Abdominal pain. CT DLP: 462.7 mGycm Automated exposure control for dose reduction was used. TECHNIQUE: Helical acquisition of images was performed from the lung bases through the pelvis. FINDINGS: LUNG BASES: No significant abnormality is appreciated. LIVER/GB: Questionable gallbladder sludge. Unremarkable liver. PANCREAS: Small and atrophic. SPLEEN: No significant abnormality is seen. ADRENALS: Unremarkable right adrenal. Heterogeneous density with fat density seen involving the left adrenal gland measuring up to 3.3 cm could represent a myelolipoma. KIDNEYS: 3 mm nonobstructing calculus is seen at the upper pole of the right kidney. Bilateral perine phric fat stranding and reactive fluid, nonspecific. Unremarkable kidneys otherwise. No hydroureter o r hydronephrosis. FREE AIR: No free air is visualized RETROPERITONEAL ADENOPATHY: None visualized REPRODUCTIVE ORGANS: Previous hysterectomy. No gross adnexal mass. URINARY BLADDER: No significant abnormality is seen. PELVIC ADENOPATHY: None visualized. OSSEOUS STRUCTURES: Diffuse osteopenia. Suspected previous vertebroplasty of L2 vertebral body. Mild upper endplate depression of L2 vertebral body with mild spinal canal stenosis is seen at that level . BOWEL: Unremarkable nondistended stomach, duodenum and small bowel. No evidence of bowel obstruction . Severe diverticulosis of the sigmoid colon with thickened wall, please correlate with colonoscopy r esults. Mild wall thickening of the cecum and ascending colon. Ileocecal junction lipoma measuring 2. 4 cm. OTHER: Arterial atherosclerotic calcifications. No sizable ascites. Very small fat-containing umbilic al hernia. Abdominal wall subcutaneous densities, please correlate for recent subcutaneous injections . IMPRESSION: No obvious acute abnormality seen in the abdomen or the pelvis. Mild wall thickening of the ascending colon with severe diverticulosis and wall thickening of the sigmoid colon, recommend correlation wit h elective colonoscopy results. Other findings as described above.
[2022-02-16 09:43] LABS: T4, Free (Free Thyroxine) 1.53 ng/dL (0.78-2.19)
--- NOTE | 2022-02-16 09:48 | XR ---
EXAMINATION TYPE: XR chest 1V portable DATE OF EXAM: 02/16/2022 HISTORY: Shortness of breath. COMPARISON: 02/15/22 TECHNIQUE: Single view of the chest is submitted. FINDINGS: Demonstrated are scattered senescent parenchymal change. There is no evidence for focal infiltrate. The heart is stable. Hilar and mediastinal structures are within normal limits. Degenerative changes are seen of the dorsal spine. IMPRESSION: 1. Chronic changes without evidence for acute pulmonary disease.
--- NOTE | 2022-02-16 10:00 | CA ---
Transthoracic Echo Report Name: Penelope Louis Age: 81 Gender: F : 1940 Exam Date: 02/15/2022 13:02 Exam Location: [facility] Ht (in): 64 Wt (lb): 130 Ordering Physician: Dwight Gilman MD Attending/Referring Phys: Cigarette Maker Nadia Cantu RDCS Procedure CPT: Indications: elevatedtrop, syncope Cardiac Hx: Technical Quality: Fair Contrast 1: Total Dose (mL): Contrast 2: Total Dose (mL): MEASUREMENTS (Male / Female) Normal Values 2D ECHO LV Diastolic Diameter PLAX 3.7 cm 4.2 - 5.9 / 3.9 - 5.3 cm LV Systolic Diameter PLAX 2.4 cm IVS Diastolic Thickness 1.2 cm 0.6 - 1.0 / 0.6 - 0.9 cm LVPW Diastolic Thickness 1.2 cm 0.6 - 1.0 / 0.6 - 0.9 cm LV Relative Wall Thickness 0.7 RV Internal Dim ED PLAX 2.7 cm M-MODE Aortic Root Diameter MM 3.1 cm MV E Point Septal Separation 0.5 cm AV Cusp Separation MM 1.9 cm DOPPLER AV Peak Velocity 123.1 cm/s AV Peak Gradient 6.1 mmHg MV Area PHT 2.4 cm Mitral E Point Velocity 69.6 cm/s Mitral A Point Velocity 147.8 cm/s Mitral E to A Ratio 0.5 MV Deceleration Time 314.2 ms MV E' Velocity 5.3 cm/s Mitral E to MV E' Ratio 13.1 TR Peak Velocity 251.5 cm/s TR Peak Gradient 25.3 mmHg Right Ventricular Systolic Press 33.5 mmHg FINDINGS Left Ventricle Left ventricular ejection fraction is estimated at 55-60 %, Mildly increased left ventricular wall thickness. left ventricular cavity size normal. Right Ventricle Normal right ventricular size. Borderline PHTN Right Atrium Normal right atrial size. Left Atrium Normal left atrial size. Mitral Valve Mitral annular calcification. Aortic Valve Trileaflet aortic valve. Thickened aortic valve without stenosis. Tricuspid Valve Mild tricuspid regurgitation. Pulmonic Valve Pulmonic valve not well visualized. Pericardium No pericardial effusion. Aorta Normal size aortic root and proximal ascending aorta. CONCLUSIONS #1. Mild left ventricle, concentric hypertrophy with preserved LV function. #2. Mitral annular calcification and thickened aortic valve leaflets. #3. Mild tricuspid regurgitation. #4. No pericardial effusion Previewed by: Dr. Nathan Anderson MD (Electronically Signed) Final Date: 16 February 2022 09:59
--- NOTE | 2022-02-16 10:08 | P.CNOR ---
History of Present Illness - [facility] Consult date: 02/16/22 Requesting physician: Dwight Gilman Consult reason: other (Potential C7 fx) History of present illness: Patient is an 81-year-old female with a history of COPD, hypertension, hypoth yroidism who presents to the emergency department [facility] Gao yesterday status post fall at [facility]. Patient says she was on the toilet when she passed out and hit her head. EMS brought patient in the hospital and mention that she had a hematoma to her forehead abrasion. Patient says about a week ago she was at [facility] for shortness of breath. Patient was seen at bedside this morning resting comfortably lying in semirecumbent position. Patient says yesterday she was in the bathroom when she began to feel nauseous as well as lightheaded she fainted and hit the floor. Patient says since coming the hospital she is being to feel a little bit weaker in her lower extremities. Patient says she is having pain mostly in her abdomen and she feels bloated at this time. Patient also mentions she does have some neck pain. Patient says she normally ambulates without a cane/walker, however, since she has been in the hospital patient feels too weak to stand under her own power. Patient says she previously had kyphoplasty of L1 and L2 she thinks about several years ago at [facility]. Patient denies any other previous orthopedic surgical history. CT of head/cervical spine does show is suspecting as anterior superior nondisplaced fracture C7 vertebral body and T5 vertebral body collapse. Patient denies chest pain, fever, shortness of breath, change in vision, loss of bowel/bladder control. Patient denies any perineal numbness/saddle anesthesia. Patient denies any lower extremity radiculopathy Past Medical History Past Medical History: Cancer, COPD, GERD/Reflux, Hyperlipidemia, Hypertension, Myocardial Infarction ([place]), Thyroid Disorder, Vascular Disorder Additional Past Medical History / Comment(s): Raynaud's syndrome, glaucoma, osteoporpsos, SVT, breast cancer Last Myocardial Infarction Date:: 2006 History of Any Multi-Drug Resistant Organisms: None Reported Past Surgical History: Appendectomy, Hysterectomy, Tonsillectomy Additional Past Surgical History / Comment(s): lumpectomy in left breast "long time ago" Past Anesthesia/Blood Transfusion Reactions: No Reported Reaction Smoking Status: Former smoker - Past Family History Daughter(s) Family Medical History: Cancer Medications and Allergies Home Medications Medication Instructions Recorded Confirmed Type ALPRAZolam [Xanax] 0.25 mg PO Q8H PRN 02/15/22 02/15/22 History Acetaminophen Tab [Tylenol] 650 mg PO Q4H PRN MDD 3000mg 02/15/22 02/15/22 History Albuterol Sulfate [Ventolin HFA] 2 puff INHALATION RT-DAILY 02/15/22 02/15/22 History Atorvastatin [Lipitor] 40 mg PO HS 02/15/22 02/15/22 History Benzonatate [Tessalon Perles] 200 mg PO Q8H PRN 02/15/22 02/15/22 History Budesonide [Pulmicort] 0.5 mg INHALATION RT-Q12H 02/15/22 02/15/22 History Calcium Carbonate [Tums] 500 mg PO Q4H PRN 02/15/22 02/15/22 History Clopidogrel Bisulfate [Plavix] 75 mg PO DAILY 02/15/22 02/15/22 History Diltiazem Cd [Cardizem CD] 180 mg PO DAILY 02/15/22 02/15/22 History Docusate [Colace] 100 mg PO Q12H PRN 02/15/22 02/15/22 History Doxycycline Monohydrate [Monodox] 100 mg PO BID 02/15/22 02/15/22 History Fluticasone Nasal [place] [Flonase 1 spr EA NOSTRIL DAILY 02/15/22 02/15/22 History Nasal [place]] Fluticasone/Vilanterol [Breo 1 puff INHALATION RT-DAILY 02/15/22 02/15/22 History Ellipta 100-25 Mcg Inhaler] Formoterol Fumarate Capsule 12mcg 1 cap INHALATION RT-BID 02/15/22 02/15/22 History Inhaler Furosemide [Lasix] 20 mg PO BID 02/15/22 02/15/22 History Latanoprost [Xalatan 0.005%] 1 drop BOTH EYES HS 02/15/22 02/15/22 History Levothyroxine Sodium [Levoxyl] 50 mcg PO DAILY 02/15/22 02/15/22 History Lisinopril [Prinivil] 10 mg PO DAILY 02/15/22 02/15/22 History Montelukast [Singulair] 10 mg PO HS 02/15/22 02/15/22 History Naproxen 500 mg PO Q12H PRN 02/15/22 02/15/22 History Nystatin [Nystatin Oral Susp] 500,000 unit PO QID 02/15/22 02/15/22 History Pantoprazole [Protonix] 40 mg PO DAILY 02/15/22 02/15/22 History Tiotropium [place] [Spiriva] 1 cap INHALATION RT-DAILY 02/15/22 02/15/22 History amLODIPine [Norvasc] 5 mg PO DAILY 02/15/22 02/15/22 History guaiFENesin [guaiFENesin Oral 200 mg PO HS PRN 02/15/22 02/15/22 History Solution] methylPREDNISolone [Medrol Dose See Taper PO DIRECTED 02/15/22 02/15/22 History Pack] Allergies Allergy/AdvReac Type Severity Reaction Status Date / Time aspirin Allergy Rash/Hives Verified 02/15/22 10:40 iodine Allergy Rash/Hives--"surgical Verified 02/15/22 10:40 soap" per patient Physical Examination Negative for any erythema, ecchymosis, open fractures, nodules. Distended abdomen. Abrasion on bridge of nose. Sensation is equal, symmetric, bilaterall y intact throughout the upper and lower extremities. Patient does have some mild to moderate tenderness patient throughout the abdomen which is distended. Patient does have some mild tenderness patient along the lower cervical spine. Nontender to palpation throughout rest of exam Patient has good range of motion bilateral upper extremities. Patient does have limited range of motion in the bilateral lower extremities and hip flexion knee flexion/extension due to weakness. Patient does have full range of motion plantar/dorsiflexion of ankles. 5/5 strength in all major motor groups in the bilateral upper extremities. 4-/5 in all major motor groups in the lower extremities bilaterally. Neurovascular status is intact bilaterally. Dorsalis pedis pulse intact, 2+ bilaterally. Cap refill under 3 seconds in digits upper extremities. Negative Homans bilaterally. Negative clonus bilaterally. Results - Labs Labs: Abnormal Lab Results - Last 24 Hours (Table) 02/15/22 02/16/22 02/16/22 Range/Units 09:35 05:52 05:52 WBC 11.7 H (3.8-10.6) k/uL RBC 3.48 L (3.80-5.40) m/uL Hgb 11.1 L (11.4-16.0) gm/dL Hct 33.1 L (34.0-46.0) % Plt Count 140 L (150-450) k/uL Neutrophils # 10.4 H (1.3-7.7) k/uL Lymphocytes # 0.5 L (1.0-4.8) k/uL D-Dimer (<0.60) mg/L FEU Sodium 136 L (137-145) mmol/L Carbon Dioxide 32 H (22-30) mmol/L BUN 38 H (7-17) mg/dL Glucose 68 L (74-99) mg/dL Calcium 8.3 L (8.4-10.2) mg/dL Phosphorus 2.4 L (2.5-4.5) mg/dL AST 43 H (14-36) U/L ALT 50 H (4-34) U/L Total Protein 4.9 L (6.3-8.2) g/dL Albumin 2.6 L (3.5-5.0) g/dL TSH 0.063 L (0.465-4.680) mIU/L Urine Appearance Cloudy H (Clear) Urine Protein Trace H (Negative) Urine Blood Trace H (Negative) Urine Bacteria Rare H (None) /hpf Hyaline Casts 38 H (0-2) /lpf Urine Mucus Rare H (None) /hpf 02/16/22 Range/Units 05:52 WBC (3.8-10.6) k/uL RBC (3.80-5.40) m/uL Hgb (11.4-16.0) gm/dL Hct (34.0-46.0) % Plt Count (150-450) k/uL Neutrophils # (1.3-7.7) k/uL Lymphocytes # (1.0-4.8) k/uL D-Dimer 1.59 H (<0.60) mg/L FEU Sodium (137-145) mmol/L Carbon Dioxide (22-30) mmol/L BUN (7-17) mg/dL Glucose (74-99) mg/dL Calcium (8.4-10.2) mg/dL Phosphorus (2.5-4.5) mg/dL AST (14-36) U/L ALT (4-34) U/L Total Protein (6.3-8.2) g/dL Albumin (3.5-5.0) g/dL TSH (0.465-4.680) mIU/L Urine Appearance (Clear) Urine Protein (Negative) Urine Blood (Negative) Urine Bacteria (None) /hpf Hyaline Casts (0-2) /lpf Urine Mucus (None) /hpf H & H 02/15/22 02/16/22 Range/Units 08:03 05:52 Hgb 13.7 11.1 L (11.4-16.0) gm/dL Hct 41.3 33.1 L (34.0-46.0) % Coagulation 02/15/22 Range/Units 08:03 INR 0.9 (<1.2) Result Diagrams: 02/16/22 05:52 02/16/22 05:52 Assessment and Plan Assessment: 1. Anteriorsuperior nondisplaced fracture, C7 vertebral body; T5 vertebral body collapse 2. Multiple medical comorbidities Plan: 1. Anteriorsuperior nondisplaced fracture, C7 vertebral body; T5 vertebral body collapse - patient stable at bedside this morning. At this time patient does not need any emergent/urgent orthopedic surgical intervention. Hard c- collar has been ordered. Patient is to wear hard c-collar at all times. At this time we'll manage conservatively with pain medications as needed. We'll continue to follow patient while in hospital. 2. Appreciate medical management 3. Pain management - Tylenol 4. DVT prophylaxis - Plavix 5. GI prophylaxis - Protonix 6. PT/OT - weightbearing as tolerated walker and assistance - hard c-collar on at all times Time with Patient: Less than 30
--- NOTE | 2022-02-16 11:27 | P.CRDCN ---
History of Present Illness Consult date: 02/16/22 History of present illness: HISTORY OF PRESENT ILLNESS: This is a 81-year-old female with a past medical history significant for COPD on home oxygen, hypertension, and hypothyroidism. Patient does not follow with a ironer machine. We have been asked to see the patient in consultation for elevated troponin. Patient examined at the bedside. Patient is admitted to the hospital secondary to possible syncope and leukocytosis. Patient was apparently hypotensive in route to the hospital. She received a fluid bolus per EMS and has been receiving IVF since that time. This morning, the patient complains of shortness of breath. She denies chest pain or pressure. Denies dizziness or lightheadedness * EKG reveals sinus mechanism with no signs of acute ischemia * Chest xray negative for acute process * Laboratory data: WBC 23.4. Hemoglobin 13.7. Platelet count 186. Sodium 131. Potassium 3.7. BUN 67. Creatinine 1.71. Troponin 0.039. 0.021. 0.023 * Current home cardiac medications include Norvasc 5 mg daily, lisinopril 10 mg daily, Lasix 20 mg twice a day, Cardizem 180mg daily, Lipitor 40 mg daily * Echocardiogram obtained revealing ejection fraction 55-60% with mild TR REVIEW OF SYSTEMS: At the time of my exam: CONSTITUTIONAL: Denies fever or chills. HEENT: Denies blurred vision, vision changes, or eye pain. Denies hemoptysis CARDIOVASCULAR: Denies chest pain. Denies orthopnea. Denies PND. Denies pa lpitations RESPIRATORY: Denies shortness of breath. GASTROINTESTINAL: Denies abdominal pain. Denies nausea or vomiting. HEMATOLOGIC: Denies bleeding disorders. GENITOURINARY: Denies any blood in urine. SKIN: Denies pruitis. Denies rash. PHYSICAL EXAM: VITAL SIGNS: Reviewed. GENERAL: Well-developed in no acute distress. HEENT: Head is normocephalic. Pupils are equal, round. Sclerae anicteric. Mucous membranes of the mouth are moist. Neck supple. No JVD or thyromegaly LUNGS: Respirations even and unlabored. Lungs essentially clear to auscultation bilaterally. HEART: Regular rate and rhythm. S1 and S2 heard. ABDOMEN: Soft. Nondistended. Nontender. EXTREMITIES: Normal range of motion. No clubbing or cyanosis. Peripheral pulses intact. No lower extremity edema NEUROLOGIC: Awake and alert. Oriented x 3. ASSESSMENT: Syncope Hypotension Leukocytosis Abnormal troponin, not suggestive of ACS Shortness of breath secondary to fluid overload secondary to IV fluid infusion COPD with home oxygen use Hypertension Hypothyroidism Acute kidney injury PLAN: 2D echo obtained and reviewed Continue current cardiac medications Monitor kidney function Give Lasix 40mg IVP x 1 dose Discontinue IV fluids No further inpatient recommendations from a cardiac standpoint Further management per internal medicine We will sign off. Please reconsult if needed. Nurse practitioner note has been reviewed by physician. Signing provider agrees with the documented findings, assessment, and plan of care. Past Medical History Past Medical History: Cancer, COPD, GERD/Reflux, Hyperlipidemia, Hypertension, Myocardial Infarction ([place]), Thyroid Disorder, Vascular Disorder Additional Past Medical History / Comment(s): Raynaud's syndrome, glaucoma, oste oporpsos, SVT, breast cancer Last Myocardial Infarction Date:: 2006 History of Any Multi-Drug Resistant Organisms: None Reported Past Surgical History: Appendectomy, Hysterectomy, Tonsillectomy Additional Past Surgical History / Comment(s): lumpectomy in left breast "long time ago" Past Anesthesia/Blood Transfusion Reactions: No Reported Reaction Smoking Status: Former smoker - Past Family History Daughter(s) Family Medical History: Cancer Medications and Allergies Home Medications Medication Instructions Recorded Confirmed Type ALPRAZolam [Xanax] 0.25 mg PO Q8H PRN 02/15/22 02/15/22 History Acetaminophen Tab [Tylenol] 650 mg PO Q4H PRN MDD 3000mg 02/15/22 02/15/22 History Albuterol Sulfate [Ventolin HFA] 2 puff INHALATION RT-DAILY 02/15/22 02/15/22 History Atorvastatin [Lipitor] 40 mg PO HS 02/15/22 02/15/22 History Benzonatate [Tessalon Perles] 200 mg PO Q8H PRN 02/15/22 02/15/22 History Budesonide [Pulmicort] 0.5 mg INHALATION RT-Q12H 02/15/22 02/15/22 History Calcium Carbonate [Tums] 500 mg PO Q4H PRN 02/15/22 02/15/22 History Clopidogrel Bisulfate [Plavix] 75 mg PO DAILY 02/15/22 02/15/22 History Diltiazem Cd [Cardizem CD] 180 mg PO DAILY 02/15/22 02/15/22 History Docusate [Colace] 100 mg PO Q12H PRN 02/15/22 02/15/22 History Doxycycline Monohydrate [Monodox] 100 mg PO BID 02/15/22 02/15/22 History Fluticasone Nasal [place] [Flonase 1 spr EA NOSTRIL DAILY 02/15/22 02/15/22 History Nasal [place]] Fluticasone/Vilanterol [Breo 1 puff INHALATION RT-DAILY 02/15/22 02/15/22 History Ellipta 100-25 Mcg Inhaler] Formoterol Fumarate Capsule 12mcg 1 cap INHALATION RT-BID 02/15/22 02/15/22 H istory Inhaler Furosemide [Lasix] 20 mg PO BID 02/15/22 02/15/22 History Latanoprost [Xalatan 0.005%] 1 drop BOTH EYES HS 02/15/22 02/15/22 History Levothyroxine Sodium [Levoxyl] 50 mcg PO DAILY 02/15/22 02/15/22 History Lisinopril [Prinivil] 10 mg PO DAILY 02/15/22 02/15/22 History Montelukast [Singulair] 10 mg PO HS 02/15/22 02/15/22 History Naproxen 500 mg PO Q12H PRN 02/15/22 02/15/22 History Nystatin [Nystatin Oral Susp] 500,000 unit PO QID 02/15/22 02/15/22 History Pantoprazole [Protonix] 40 mg PO DAILY 02/15/22 02/15/22 History Tiotropium [place] [Spiriva] 1 cap INHALATION RT-DAILY 02/15/22 02/15/22 History amLODIPine [Norvasc] 5 mg PO DAILY 02/15/22 02/15/22 History guaiFENesin [guaiFENesin Oral 200 mg PO HS PRN 02/15/22 02/15/22 History Solution] methylPREDNISolone [Medrol Dose See Taper PO DIRECTED 02/15/22 02/15/22 History Pack] Allergies Allergy/AdvReac Type Severity Reaction Status Date / Time aspirin Allergy Rash/Hives Verified 02/15/22 10:40 iodine Allergy Rash/Hives--"surgical Verified 02/15/22 10:40 soap" per patient Physical Exam Vitals: Vital Signs Temp Pulse Pulse Resp BP BP Pulse Ox 02/16/22 08:15 98 F 103 H 24 109/54 94 L 02/16/22 04:00 98.2 F 18 113/66 100 02/15/22 23:29 96 02/15/22 23:21 93 02/15/22 23:10 98 20 99/58 95 02/15/22 20:53 93 02/15/22 20:45 92 02/15/22 19:55 97.4 F L 93 18 111/62 91 L 02/15/22 15:48 97.4 F L 93 20 90/60 97 02/15/22 12:00 97.8 F 91 20 100/59 97 02/15/22 11:30 71 18 100/66 97 Intake and Output 02/15/22 02/16/22 02/16/22 22:59 06:59 14:59 Intake Total 870 Balance 870 Intake: Intake, IV Titration 750 Amount Ampicillin-Sulbactam 3 gm 100 In Sodium Chloride 0.9% 100 ml @ 200 mls/hr IVPB Q6HR [facility] Rx#:[id number] Sodium Chloride 0.9% 1, 650 000 ml @ 130 mls/hr IV . Q7H42M [facility] Rx#:[id number] Oral 120 Other: # Voids 1 2 Results 02/16/22 05:52 02/16/22 05:52 Cardiac Enzymes 02/15/22 02/15/22 02/16/22 Range/Units 11:28 14:54 05:52 AST 43 H (14-36) U/L Troponin I 0.025 0.023 (0.000-0.034) ng/mL CBC 02/16/22 Range/Units 05:52 WBC 11.7 H (3.8-10.6) k/uL RBC 3.48 L (3.80-5.40) m/uL Hgb 11.1 L (11.4-16.0) gm/dL Hct 33.1 L (34.0-46.0) % Plt Count 140 L (150-450) k/uL Comprehensive Metabolic Panel 02/16/22 Range/Units 05:52 Sodium 136 L (137-145) mmol/L Potassium 3.6 (3.5-5.1) mmol/L Chloride 102 (98-107) mmol/L Carbon Dioxide 32 H (22-30) mmol/L BUN 38 H (7-17) mg/dL Creatinine 0.90 (0.52-1.04) mg/dL Glucose 68 L (74-99) mg/dL Calcium 8.3 L (8.4-10.2) mg/dL AST 43 H (14-36) U/L ALT 50 H (4-34) U/L Alkaline Phosphatase 71 (38-126) U/L Total Protein 4.9 L (6.3-8.2) g/dL Albumin 2.6 L (3.5-5.0) g/dL Current Medications Generic Name Dose Route Start Last Admin Trade Name Freq PRN Reason Stop Dose Admin Acetaminophen 650 mg 02/15/22 09:25 Acetaminophen Tab 325 Mg Tab PO Q6HR PRN Mild Pain or Fever > 100.5 Albuterol/Ipratropium 3 ml 02/15/22 11:35 02/15/22 23:21 Ipratropium-Albuterol 3 Ml Neb INHALATION 3 ml RT-QID PRN Administration Shortness Of Breath Or Wheezing Alprazolam 0.25 mg 02/15/22 11:32 Alprazolam 0.25 Mg Tab PO BID PRN Anxiety Barium Sulfate 450 ml 02/15/22 13:36 02/16/22 06:52 Barium Sulfate 450 Ml Oral.Susp Bottle PO 02/16/22 13:37 450 ml Q3HR PRN Administration CT Scan Budesonide 0.5 mg 02/15/22 20:00 02/16/22 08:18 Budesonide 0.5 Mg/2 Ml Nebu INHALATION Not Given RT-Q12H [facility] Clopidogrel Bisulfate 75 mg 02/16/22 09:00 02/16/22 08:22 Clopidogrel 75 Mg Tab PO 75 mg DAILY [facility] Administration Ampicillin Sodium/Sulbactam 100 mls @ 200 mls/hr 02/16/22 16:00 Sodium 3 gm/ Sodium Chloride IVPB Q8HR [facility] Protocol Latanoprost 1 drops 02/15/22 21:00 02/15/22 19:59 Latanoprost 0.005% Ophth Drops 2.5 Ml Btl BOTH EYES 1 drops HS [facility] Administration Midodrine 5 mg 02/15/22 18:15 02/16/22 08:22 Midodrine 5 Mg Tab PO 5 mg AC-BID [facility] Administration Montelukast Sodium 10 mg 02/15/22 21:00 02/15/22 19:59 Montelukast 10 Mg Tab PO 10 mg HS [facility] Administration Naloxone HCl 0.2 mg 02/15/22 11:22 Naloxone 0.4 Mg/Ml 1 Ml Vial IV Q2M PRN Opioid Reversal Pantoprazole Sodium 40 mg 02/16/22 07:30 02/16/22 08:22 Pantoprazole 40 Mg Tablet PO 40 mg DAILY@0730 [facility] Administration Intake and Output 02/15/22 02/16/22 02/16/22 22:59 06:59 14:59 Intake Total 870 Balance 870 Intake: Intake, IV Titration 750 Amount Ampicillin-Sulbactam 3 gm 100 In Sodium Chloride 0.9% 100 ml @ 200 mls/hr IVPB Q6HR [facility] Rx#:[id number] Sodium Chloride 0.9% 1, 650 000 ml @ 130 mls/hr IV . Q7H42M [facility] Rx#:[id number] Oral 120 Other: # Voids 1 2 02/16/22 05:52 02/16/22 05:52
--- NOTE | 2022-02-16 11:49 | P.NPCON ---
History of Present Illness - Reason for Consult acute renal failure - History of Present Illness Patient is a 81-year-old female with history of COPD, hypertension, hypothyroidism. Patient is admitted to the hospital with complaints of abdominal pain nausea, increased weakness and lightheadedness. Patient apparently had the syncopal episode. Her blood pressure was low with systolic in the 70s to 80s. Currently maintained on IV fluids. Serum creatinine was 1.7 on initial admission and it is down to 0.9 today. Patient has been voiding Blood pressure currently 90-1 10 mmHg systolic Patient was on shea inhibitors and nonsteroidal anti-inflammatory agents at home and this is currently on hold Review of Systems As per HPI other systems negative Past Medical History Past Medical History: Cancer, COPD, GERD/Reflux, Hyperlipidemia, Hypertension, Myocardial Infarction ([place]), Thyroid Disorder, Vascular Disorder Additional Past Medical History / Comment(s): Raynaud's syndrome, glaucoma, osteoporpsos, SVT, breast cancer Last Myocardial Infarction Date:: 2006 History of Any Multi-Drug Resistant Organisms: None Reported Past Surgical History: Appendectomy, Hysterectomy, Tonsillectomy Additional Past Surgical History / Comment(s): lumpectomy in left breast "long time ago" Past Anesthesia/Blood Transfusion Reactions: No Reported Reaction Smoking Status: Former smoker - Past Family History Daughter(s) Family Medical History: Cancer Medications and Allergies Home Medications Medication Instructions Recorded Confirmed Type ALPRAZolam [Xanax] 0.25 mg PO Q8H PRN 02/15/22 02/15/22 History Acetaminophen Tab [Tylenol] 650 mg PO Q4H PRN MDD 3000mg 02/15/22 02/15/22 History Albuterol Sulfate [Ventolin HFA] 2 puff INHALATION RT-DAILY 02/15/22 02/15/22 History Atorvastatin [Lipitor] 40 mg PO HS 02/15/22 02/15/22 History Benzonatate [Tessalon Perles] 200 mg PO Q8H PRN 02/15/22 02/15/22 History Budesonide [Pulmicort] 0.5 mg INHALATION RT-Q12H 02/15/22 02/15/22 History Calcium Carbonate [Tums] 500 mg PO Q4H PRN 02/15/22 02/15/22 History Clopidogrel Bisulfate [Plavix] 75 mg PO DAILY 02/15/22 02/15/22 History Diltiazem Cd [Cardizem CD] 180 mg PO DAILY 02/15/22 02/15/22 History Docusate [Colace] 100 mg PO Q12H PRN 02/15/22 02/15/22 History Doxycycline Monohydrate [Monodox] 100 mg PO BID 02/15/22 02/15/22 History Fluticasone Nasal [place] [Flonase 1 spr EA NOSTRIL DAILY 02/15/22 02/15/22 History Nasal [place]] Fluticasone/Vilanterol [Breo 1 puff INHALATION RT-DAILY 02/15/22 02/15/22 History Ellipta 100-25 Mcg Inhaler] Formoterol Fumarate Capsule 12mcg 1 cap INHALATION RT-BID 02/15/22 02/15/22 History Inhaler Furosemide [Lasix] 20 mg PO BID 02/15/22 02/15/22 History Latanoprost [Xalatan 0.005%] 1 drop BOTH EYES HS 02/15/22 02/15/22 History Levothyroxine Sodium [Levoxyl] 50 mcg PO DAILY 02/15/22 02/15/22 History Lisinopril [Prinivil] 10 mg PO DAILY 02/15/22 02/15/22 History Montelukast [Singulair] 10 mg PO HS 02/15/22 02/15/22 History Naproxen 500 mg PO Q12H PRN 02/15/22 02/15/22 History Nystatin [Nystatin Oral Susp] 500,000 unit PO QID 02/15/22 02/15/22 History Pantoprazole [Protonix] 40 mg PO DAILY 02/15/22 02/15/22 History Tiotropium [place] [Spiriva] 1 cap INHALATION RT-DAILY 02/15/22 02/15/22 History amLODIPine [Norvasc] 5 mg PO DAILY 02/15/22 02/15/22 History guaiFENesin [guaiFENesin Oral 200 mg PO HS PRN 02/15/22 02/15/22 History Solution] methylPREDNISolone [Medrol Dose See Taper PO DIRECTED 02/15/22 02/15/22 History Pack] Allergies Allergy/AdvReac Type Severity Reaction Status Date / Time aspirin Allergy Rash/Hives Verified 02/15/22 10:40 iodine Allergy Rash/Hives--"surgical Verified 02/15/22 10:40 soap" per patient Physical Exam Vitals: Vital Signs Temp Pulse Pulse Resp BP Pulse Ox 02/16/22 08:15 98 F 103 H 24 109/54 94 L 02/16/22 04:00 98.2 F 18 113/66 100 02/15/22 23:29 96 02/15/22 23:21 93 02/15/22 23:10 98 20 99/58 95 02/15/22 20:53 93 02/15/22 20:45 92 02/15/22 19:55 97.4 F L 93 18 111/62 91 L 02/15/22 15:48 97.4 F L 93 20 90/60 97 02/15/22 12:00 97.8 F 91 20 100/59 97 Intake and Output 02/15/22 02/16/22 02/16/22 22:59 06:59 14:59 Intake Total 870 Balance 870 Intake: Intake, IV Titration 750 Amount Ampicillin-Sulbactam 3 gm 100 In Sodium Chloride 0.9% 100 ml @ 200 mls/hr IVPB Q6HR [facility] Rx#:[id number] Sodium Chloride 0.9% 1, 650 000 ml @ 130 mls/hr IV . Q7H42M [facility] Rx#:[id number] Oral 120 Other: # Voids 1 2 Agent is awake, comfortable, not in any acute distress Examination of the heart S1 and S2 Examination lungs bilateral breath sounds are heard Abdomen is soft nontender Examination lower extremities shows no evidence of edema Results - Lab Results Most recent lab results Calcium 8.3 mg/dL (8.4-10.2) L 02/16/22 05:52 Phosphorus 2.4 mg/dL (2.5-4.5) L 02/16/22 05:52 Magnesium 1.8 mg/dL (1.6-2.3) 02/16/22 05:52 02/16/22 05:52 02/16/22 05:52 Assessment and Plan Assessment: 1. Acute kidney injury prerenal associated with hypovolemia and hypotension. Currently improved. Maintained on IV fluids 2. Syncopal episode associated with hypotension, possible vasovagal 3. COPD maintained on home oxygen 3-4 L 4. Hypothyroidism maintained on supplementation Plan: Continue with IV fluids Encourage increased oral intake continue with midodrine Avoid NSAIDs post discharge and continue to hold off on SHEA inhibitor's as blood pressure remains low.
--- NOTE | 2022-02-16 17:30 | P.PN ---
Subjective History of Present Illness Chief Complaint: Loss of consciousness This is a very pleasant 81-year-old female who was brought to [facility] Department by EMS for evaluation of syncope. Patient has history of COPD on home oxygen, hypertension, hypothyroidism. Home medications include Norvasc, lisinopril, Cardizem, Plavix, inhale corticoster oids, dilators and levothyroxine. Patient states that about a week ago she was admitted at [facility] in [place] for respiratory issues, COPD exacerbation. About 3 days prior to this admission she was discharged to halfway facility on Lasix prednisone, and antibiotics. Prior to that she would typically not take Lasix. Patient states that she was in usual state of health yesterday until in the evening she had a fish sandwich. After that overnight she started experiencing some cramping in the lower part of her abdomen. She did not have any diarrhea. She denies any fever or chills or any respiratory complaints. No dysuria or foul-smelling urine or hematuria. This morning she went to the bathroom and experienced nausea and was retching, no vomiting when she started feeling lightheaded with hot flashes and she collapsed and blacked out. Since she's been residing in a halfway facility, EMS was called and she was transferred to ER. En route, EMS measure her systolic blood pressure 7080s. She was given bolus of IV fluids which led to quick improvement in her blood pressure. Patient stated that she did not lose consciousness completely, just feeling very lightheaded. She was not having any confusion. She did not have any involuntary movement of bowels or incontinence of urine. No tongue biting no seizure-like activity described. She denies any headache vision changes scintillations chest pain or palpitations before and after the event. During my interview patient stated that she is currently feeling much better after IV fluids and does not have any complaints. She unfortunately hurt her head with this fall and she does have small hematoma on the right side of her forehead but she currently denies any headache or vision changes. In the emergency department, found to have a blood cell count 24,000 with predominance of neutrophils. Stable hemoglobin. Creatinine of 1.7 beats BUNs of 67 normal anion gap serum bicarbonate of 37 and sodium 10/30/1929 and chloride of 89. Patient denied any previous history of renal insufficiency. Imaging: CT of the head without any acute intracranial changes. She does have small right frontal scalp hematoma. CT of the cervical and thoracic spine showing T5 vertebral body collapse chronically in nature. Questionable artifact versus subtle nondisplaced fracture and C7 vertebral body which could be acute or chronic clinical correlation advised. Other changes as per report Interval history: 02/16 patient was examined at the bedside. She is confused. Only alert and oriented to herself. She denies any chest pain or shortness of breath Physical examination: Awake alert oriented 2 Head and neck: Small right sided frontal scalp hematoma no skull depressions or excoriations Anicteric sclera and oropharyngeal mucosa moist without any lesions no neck masses no JVD Neck supple without any point tenderness without rigidity Lungs: Clear to auscultation Cardiovascular: Regular rhythm and rate S1 posterior Abdomen: Bowel sounds present throughout, abdomen is soft nontender nondistended no organomegaly no masses, no suprapubic tenderness no flank tenderness right upper quadrant tenderness Extremities: No peripheral edema no cyanosis warm well perfused DP pulses present bilateral Musculoskeletal: No deformities Neurological: Awake alert oriented 3, cranial nerves II through XII intact, motor strength is 5 out of 5 in upper and lower extremities proximally and distally, no ankle clonus , nontender reflexes laxer bilateral, sensitivity to light touch in upper limits immitis preserved no asterixis [id number] intact Assessment and plan: #Fall and presyncope Patient presents with hypotension, component of vasovagal reaction, orthostasis in the setting of diuresis dehydration multiple blood pressure medications Rule out sepsis, septic workup underway Improving with IV fluids Continue IV fluids Hold blood pressure medications, hold Lasix #SIRS, leukocytosis rule out sepsis Reactive due to use of systemic steroids and dehydration Septic workup, blood cultures UA with cultures Chest x-ray without acute findings Imaging of the abdomen will be needed due to some discomfort Continue antibiotics, infectious disease consultation #Elevated troponin No active chest pain No acute EKG findings The patient asymptomatic cardiology consultation Echocardiogram Keep on telemetry Continue home Plavix, CT of the head no active bleeding #Acute kidney injury Suspected to be prerenal Continue IV fluids UA: No significant proteinuria no RBCs or WBCs Ultrasound of the kidneys, bladder scan Nephrology consultation #Chronic hypoxic respiratory failure COPD without acute exacerbation, on home oxygen 34 liters Continue oxygen, continue nebulizers #Elevated liver enzymes Normal bilirubin and alkaline phosphatase Trend liver enzymes, may need ultrasound #Closed head trauma Due to fall CT of the head and cervical spine obtained Consider or to/neurosurgery consult #Hypothyroidism Continue levothyroxine #Hypertension Hold home blood pressure medications due to hypotension DVT prophylaxis SCDs Patient will need more than 2 minutes hospital stay Objective - Vital Signs Vital signs: Vital Signs Temp 97.5 F L 02/16/22 13:00 Pulse 99 02/16/22 13:00 Resp 20 02/16/22 13:54 BP 115/65 02/16/22 13:00 Pulse Ox 95 02/16/22 13:00 Intake & Output 02/15/22 02/16/22 02/16/22 18:59 06:59 18:59 Intake Total 870 Balance 870 Weight 59.058 kg Intake: Intake, IV Titration 750 Amount Ampicillin-Sulbactam 3 gm 100 In Sodium Chloride 0.9% 100 ml @ 200 mls/hr IVPB Q6HR [facility] Rx#:[id number] Sodium Chloride 0.9% 1, 650 000 ml @ 130 mls/hr IV . Q7H42M [facility] Rx#:[id number] Oral 120 Other: # Voids 1 2 # Bowel Movements 1 - Labs CBC & Chem 7: 02/16/22 05:52 02/16/22 05:52 Labs: Abnormal Lab Results - Last 24 Hours (Table) 02/16/22 02/16/22 02/16/22 Range/Units 05:52 05:52 05:52 WBC 11.7 H (3.8-10.6) k/uL RBC 3.48 L (3.80-5.40) m/uL Hgb 11.1 L (11.4-16.0) gm/dL Hct 33.1 L (34.0-46.0) % Plt Count 140 L (150-450) k/uL Neutrophils # 10.4 H (1.3-7.7) k/uL Lymphocytes # 0.5 L (1.0-4.8) k/uL D-Dimer 1.59 H (<0.60) mg/L FEU Sodium 136 L (137-145) mmol/L Carbon Dioxide 32 H (22-30) mmol/L BUN 38 H (7-17) mg/dL Glucose 68 L (74-99) mg/dL Calcium 8.3 L (8.4-10.2) mg/dL Phosphorus 2.4 L (2.5-4.5) mg/dL AST 43 H (14-36) U/L ALT 50 H (4-34) U/L Total Protein 4.9 L (6.3-8.2) g/dL Albumin 2.6 L (3.5-5.0) g/dL TSH 0.063 L (0.465-4.680) mIU/L Microbiology - Last 24 Hours (Table) 02/15/22 09:51 Blood Culture - Preliminary Blood No Growth after 24 hours 02/15/22 09:35 Blood Culture - Preliminary Blood No Growth after 24 hours
[2022-02-16] MEDS: LATANOPROST 0.005% OPHTH DROPS 2.5 ML BTL BOTH EYES SCH (19:57)
[2022-02-16] MEDS: MONTELUKAST 10 MG TAB PO SCH (19:58)
--- NOTE | 2022-02-16 21:24 | P.PN ---
Subjective Progress Note Date: 02/16/22 Principal diagnosis: Leukocytosis possible diverticulitis Patient is 81 year old female presenting to the hospital with a fall this patient also complaining of some abdominal bloating and discomfort did have elevated white count for the patient did have a CT of abdominal pelvis evidence of significant diverticulosis and possible colitis. On today's evaluation that is 02/16/2022, the patient denies having any fever or any chills, the patient slightly more awake and alert, the patient is breathing comfortably denies any chest pain shortness of breath or cough no abdominal pain is currently controlled no nausea no vomiting and no diarrhea Objective - Vital Signs Vital signs: Vital Signs Temp 98 F 02/16/22 08:15 Pulse 103 H 02/16/22 08:15 Resp 24 02/16/22 08:15 BP 109/54 02/16/22 08:15 Pulse Ox 94 L 02/16/22 08:15 Intake & Output 02/15/22 02/16/22 02/16/22 18:59 06:59 18:59 Intake Total 870 Balance 870 Weight 59.058 kg Intake: Intake, IV Titration 750 Amount Ampicillin-Sulbactam 3 gm 100 In Sodium Chloride 0.9% 100 ml @ 200 mls/hr IVPB Q6HR [facility] Rx#:[id number] Sodium Chloride 0.9% 1, 650 000 ml @ 130 mls/hr IV . Q7H42M [facility] Rx#:[id number] Oral 120 Other: # Voids 1 2 # Bowel Movements 1 - Exam GENERAL DESCRIPTION: An elderly female lying in bed in no distress RESPIRATORY SYSTEM: Unlabored breathing , decreased breath sounds at bases HEART: S1 S2 regular rate and rhythm , ABDOMEN: Soft , no tenderness EXTREMITIES: No edema feet - Labs CBC & Chem 7: 02/16/22 05:52 02/16/22 05:52 Labs: Abnormal Lab Results - Last 24 Hours (Table) 02/16/22 02/16/22 02/16/22 Range/Units 05:52 05:52 05:52 WBC 11.7 H (3.8-10.6) k/uL RBC 3.48 L (3.80-5.40) m/uL Hgb 11.1 L (11.4-16.0) gm/dL Hct 33.1 L (34.0-46.0) % Plt Count 140 L (150-450) k/uL Neutrophils # 10.4 H (1.3-7.7) k/uL Lymphocytes # 0.5 L (1.0-4.8) k/uL D-Dimer 1.59 H (<0.60) mg/L FEU Sodium 136 L (137-145) mmol/L Carbon Dioxide 32 H (22-30) mmol/L BUN 38 H (7-17) mg/dL Glucose 68 L (74-99) mg/dL Calcium 8.3 L (8.4-10.2) mg/dL Phosphorus 2.4 L (2.5-4.5) mg/dL AST 43 H (14-36) U/L ALT 50 H (4-34) U/L Total Protein 4.9 L (6.3-8.2) g/dL Albumin 2.6 L (3.5-5.0) g/dL TSH 0.063 L (0.465-4.680) mIU/L Microbiology - Last 24 Hours (Table) 02/15/22 09:51 Blood Culture - Preliminary Blood No Growth after 24 hours 02/15/22 09:35 Blood Culture - Preliminary Blood No Growth after 24 hours Assessment and Plan (1) Leukocytosis Current Visit: Yes Status: Acute Code(s): D72.829 - ELEVATED WHITE BLOOD CELL COUNT, UNSPECIFIED SNOMED Code(s): 174631561 Plan: 1patient presented to hospital with a syncopal episode this patient did have a fall in the bathroom prior to that the patient was complaining of abdominal bloating and gas patient did have mild distention and slightly tender likely concerning for abdominal source and will need to cover for the enteric gram- negative katharine 2- CT of abdominal pelvis with oral contrast did show extensive due to doses and possible colitis likely the source of elevated white count 3- patient clinically improving and white count showing a downward trend with Unasyn to continue Time with Patient: Less than 30
[2022-02-17] MEDS: MIDODRINE 5 MG TAB PO SCH ×2 (06:28→16:43)
[2022-02-17] MEDS: PANTOPRAZOLE 40 MG TABLET PO SCH (06:30)
[2022-02-17 08:03] LABS: Basophils % (A) 0 %; Eosinophils % (A) 0 %; HCT 31.6 % (34.0-46.0); Lymphocytes # (A) 0.6 k/uL (1.0-4.8); Lymphocytes % (A) 6 %; MCHC 34.7 g/dL (31.0-37.0); MCV 95.2 fL (80.0-100.0); Mean Platelet Volume 8.5; Monocytes # (A) 0.7 k/uL (0-1.0); Monocytes % (A) 6 %; Neutrophils # (A) 9.4 k/uL (1.3-7.7); Neutrophils % (A) 86 %; Platelet Count 126 k/uL (150-450); RBC 3.32 m/uL (3.80-5.40); RDW 13.5 % (11.5-15.5); WBC 10.9 k/uL (3.8-10.6)
[2022-02-17] MEDS: AMPICILLIN-SULBACTAM 3 GM in SODIUM CHLORIDE 0.9% 100 ML IVPB SCH ×3 (08:34→23:15)
[2022-02-17] MEDS: CLOPIDOGREL 75 MG TAB PO SCH (08:35)
[2022-02-17 08:42] LABS: Magnesium 1.6 mg/dL (1.6-2.3); Phosphorus 2.4 mg/dL (2.5-4.5)
[2022-02-17] MEDS: IPRATROPIUM-ALBUTEROL 3 ML NEB INHALATION PRN ×2 (08:43→21:04)
[2022-02-17] MEDS: BUDESONIDE 0.5 MG/2 ML NEBU INHALATION SCH ×2 (08:43→21:04)
--- NOTE | 2022-02-17 11:40 | P.PN ---
Subjective Progress Note Date: 02/17/22 History of Present Illness Chief Complaint: Loss of consciousness This is a very pleasant 81-year-old female who was brought to [facility] by EMS for evaluation of syncope. Patient has history of COPD on home oxygen, hypertension, hypothyroidism. Home medications include Norvasc, lisinopril, Cardizem, Plavix, inhale corticosteroids, dilators and levothyroxine. Patient states that about a week ago she was admitted at [facility] in [place] for respiratory issues, COPD exacerbation. About 3 days prior to this admission she was discharged to [facility] facility on Lasix prednisone, and antibiotics. Prior to that she would typically not take Lasix. Patient states that she was in usual state of health yesterday until in the evening she had a fish sandwich. After that overnight she started experiencing some cramping in the lower part of her abdomen. She did not have any diarrhea. She denies any fever or chills or any respiratory complaints. No dysuria or foul-smelling urine or hematuria. This morning she went to the bathroom and experienced nausea and was retching, no vomiting when she started feeling lightheaded with hot flashes and she collapsed and blacked out. Since she's been residing in a correction facility, EMS was called and she was transferred to ER. En route, EMS measure her systolic blood pressure 7080s. She was given bolus of IV fluids which led to quick improvement in her blood pressure. Patient stated that she did not lose consciousness completely, just feeling very lightheaded. She was not having any confusion. She did not have any involuntary movement of bowels or incontinence of urine. No tongue biting no seizure-like activity described. She denies any headache vision changes scin tillations chest pain or palpitations before and after the event. During my interview patient stated that she is currently feeling much better after IV fluids and does not have any complaints. She unfortunately hurt her head with this fall and she does have small hematoma on the right side of her forehead but she currently denies any headache or vision changes. In the emergency department, found to have a blood cell count 24,000 with predominance of neutrophils. Stable hemoglobin. Creatinine of 1.7 beats BUNs of 67 normal anion gap serum bicarbonate of 37 and sodium 10/30/1929 and chlorid e of 89. Patient denied any previous history of renal insufficiency. Imaging: CT of the head without any acute intracranial changes. She does have small right frontal scalp hematoma. CT of the cervical and thoracic spine showing T5 vertebral body collapse chronically in nature. Questionable artifact versus subtle nondisplaced fracture and C7 vertebral body which could be acute or chronic clinical correlation advised. Other changes as per report Interval history: 02/16 patient was examined at the bedside. She is confused. Only alert and oriented to herself. She denies any chest pain or shortness of breath 02/17 patient was seen and examined at the bedside. She is awake and oriented 2. She is complaining of heartburn Physical examination: Awake alert oriented 2 Head and neck: Small right sided frontal scalp hematoma no skull depressions or excoriations Anicteric sclera and oropharyngeal mucosa moist without any lesions no neck masses no JVD Neck supple without any point tenderness without rigidity Lungs: Clear to auscultation Cardiovascular: Regular rhythm and rate S1 posterior Abdomen: Bowel sounds present throughout, abdomen is soft nontender nondistended no organomegaly no masses, no suprapubic tenderness no flank tenderness right upper quadrant tenderness Extremities: No peripheral edema no cyanosis warm well perfused DP pulses present bilateral Musculoskeletal: No deformities Neurological: Awake alert oriented 3, cranial nerves II through XII intact, motor strength is 5 out of 5 in upper and lower extremities proximally and distally, no ankle clonus , nontender reflexes laxer bilateral, sensitivity to light touch in upper limits immitis preserved no asterixis [id number] intact Assessment and plan: #Fall and presyncope Patient presents with hypotension, component of vasovagal reaction, orthostasis in the setting of diuresis dehydration multiple blood pressure medications Rule out sepsis, septic workup underway Improving with IV fluids Continue IV fluids Hold blood pressure medications, hold Lasix #SIRS, leukocytosis rule out sepsis Reactive due to use of systemic steroids and dehydration Septic workup, blood cultures UA with cultures Chest x-ray without acute findings Imaging of the abdomen will be needed due to some discomfort Continue antibiotics, infectious disease consultation #Elevated troponin No active chest pain No acute EKG findings The patient asymptomatic cardiology consultation Echocardiogram Keep on telemetry Continue home Plavix, CT of the head no active bleeding #Acute kidney injury Suspected to be prerenal Continue IV fluids UA: No significant proteinuria no RBCs or WBCs Ultrasound of the kidneys, bladder scan Nephrology consultation #Chronic hypoxic respiratory failure COPD without acute exacerbation, on home oxygen 34 liters Continue oxygen, continue nebulizers #Elevated liver enzymes Normal bilirubin and alkaline phosphatase Trend liver enzymes, may need ultrasound #Closed head trauma Due to fall CT of the head and cervical spine obtained Consider or to/neurosurgery consult #Hypothyroidism Continue levothyroxine #Hypertension Hold home blood pressure medications due to hypotension DVT prophylaxis SCDs Patient will need more than 2 minutes hospital stay Objective - Vital Signs Vital signs: Vital Signs Temp 97.3 F L 02/17/22 03:45 Pulse 102 H 02/17/22 09:02 Resp 16 02/17/22 08:00 BP 98/53 02/17/22 08:00 Pulse Ox 95 02/17/22 08:00 Intake & Output 02/16/22 02/17/22 02/17/22 18:59 06:59 18:59 Intake Total 580 180 Balance 580 180 Intake: Intake, IV Titration 100 Amount Ampicillin-Sulbactam 3 gm 100 In Sodium Chloride 0.9% 100 ml @ 200 mls/hr IVPB Q8HR [facility] Rx#:[id number] Oral 480 180 Other: # Voids 4 3 2 # Bowel Movements 2 0 - Labs CBC & Chem 7: 02/17/22 07:23 02/16/22 05:52 Labs: Abnormal Lab Results - Last 24 Hours (Table) 02/17/22 02/17/22 Range/Units 07:23 07:23 WBC 10.9 H (3.8-10.6) k/uL RBC 3.32 L (3.80-5.40) m/uL Hgb 11.0 L (11.4-16.0) gm/dL Hct 31.6 L (34.0-46.0) % Plt Count 126 L (150-450) k/uL Neutrophils # 9.4 H (1.3-7.7) k/uL Lymphocytes # 0.6 L (1.0-4.8) k/uL Phosphorus 2.4 L (2.5-4.5) mg/dL Microbiology - Last 24 Hours (Table) 02/15/22 09:51 Blood Culture - Preliminary Blood No Growth after 24 hours 02/15/22 09:35 Blood Culture - Preliminary Blood No Growth after 24 hours
--- NOTE | 2022-02-17 13:02 | P.PN ---
Subjective Patient is seen for follow-up for acute kidney injury Renal function has improved. Patient is status post IV fluids. Objective - Vital Signs Vital signs: Vital Signs Temp 97.3 F L 02/17/22 03:45 Pulse 109 H 02/17/22 12:00 Resp 16 02/17/22 12:00 BP 86/50 02/17/22 12:00 Pulse Ox 95 02/17/22 12:00 Intake & Output 02/16/22 02/17/22 02/17/22 18:59 06:59 18:59 Intake Total 580 180 Balance 580 180 Intake: Intake, IV Titration 100 Amount Ampicillin-Sulbactam 3 gm 100 In Sodium Chloride 0.9% 100 ml @ 200 mls/hr IVPB Q8HR [facility] Rx#:[id number] Oral 480 180 Other: # Voids 4 3 2 # Bowel Movements 2 0 - Exam Patient is awake, comfortable, not in any acute distress Examination of the heart S1 and S2 Exertion lungs bilateral breath sounds are heard Abdomen is soft nontender Exertion lower extremity shows no evidence of edema - Labs CBC & Chem 7: 02/17/22 07:23 02/16/22 05:52 Labs: Abnormal Lab Results - Last 24 Hours (Table) 02/17/22 02/17/22 Range/Units 07:23 07:23 WBC 10.9 H (3.8-10.6) k/uL RBC 3.32 L (3.80-5.40) m/uL Hgb 11.0 L (11.4-16.0) gm/dL Hct 31.6 L (34.0-46.0) % Plt Count 126 L (150-450) k/uL Neutrophils # 9.4 H (1.3-7.7) k/uL Lymphocytes # 0.6 L (1.0-4.8) k/uL Phosphorus 2.4 L (2.5-4.5) mg/dL Microbiology - Last 24 Hours (Table) 02/15/22 09:51 Blood Culture - Preliminary Blood No Growth after 48 hours 02/15/22 09:35 Blood Culture - Preliminary Blood No Growth after 48 hours Assessment and Plan Assessment: 1. Acute kidney injury prerenal associated with hypovolemia and hypotension. Currently improved. Status post IV fluids 2. Syncopal episode associated with hypotension, possible vasovagal 3. COPD maintained on home oxygen 3-4 L 4. Hypothyroidism maintained on supplementation Plan: Continue to encourage increase oral intake
--- NOTE | 2022-02-17 13:23 | P.PN ---
Subjective Progress Note Date: 02/17/22 Principal diagnosis: Anteriorsuperior nondisplaced fracture, C7 vertebral body; T5 vertebral compression fracture, chronic Patient was seen at bedside dissection and resting comfortably lying in semirecumbent position. Patient says yesterday she did stand up at bedside with assistance. However, patient says she did feel weak so she did not take any steps. Patient says she is not complaining of any neck pain at this time. We are waiting for arrival of hard c-collar. Patient says she doesn't want to wear cervical collar because she is not having any neck pain. Patient denies increasing chest pain, increasing shortness of breath, nausea, vomiting, change in vision, loss of bowel/bladder control. Objective - Vital Signs Vital signs: Vital Signs Temp 97.3 F L 02/17/22 03:45 Pulse 109 H 02/17/22 12:00 Resp 16 02/17/22 12:00 BP 86/50 02/17/22 12:00 Pulse Ox 95 02/17/22 12:00 Intake & Output 02/16/22 02/17/22 02/17/22 18:59 06:59 18:59 Intake Total 580 180 Balance 580 180 Intake: Intake, IV Titration 100 Amount Ampicillin-Sulbactam 3 gm 100 In Sodium Chloride 0.9% 100 ml @ 200 mls/hr IVPB Q8HR [facility] Rx#:[id number] Oral 480 180 Other: # Voids 4 3 2 # Bowel Movements 2 0 - Exam Negative for any erythema, ecchymosis, open fractures, nodules. Distended abdomen. Abrasion on bridge of nose. Sensation is equal, symmetric, bilaterally intact throughout the upper and lower extremities. Patient does have some mild to moderate tenderness patient throughout the abdomen which is distended. Patient does have some mild tenderness patient along the lower cervical spine. Nontender to palpation throughout rest of exam Patient has good range of motion bilateral upper extremities. Patient does have limited range of motion in the bilateral lower extremities and hip flexion knee flexion/extension due to weakness. Patient does have full range of motion plantar/dorsiflexion of ankles. 5/5 strength in all major motor groups in the bilateral upper extremities. 4-/5 in all major motor groups in the lower extremities bilaterally. Neurovascular status is intact bilaterally. Dorsalis pedis pulse intact, 2+ bilaterally. Cap refill under 3 seconds in digits upper extremities. Negative Homans bilaterally. Negative clonus bilaterally. - Labs CBC & Chem 7: 02/17/22 07:23 02/16/22 05:52 Labs: Abnormal Lab Results - Last 24 Hours (Table) 02/17/22 02/17/22 Range/Units 07:23 07:23 WBC 10.9 H (3.8-10.6) k/uL RBC 3.32 L (3.80-5.40) m/uL Hgb 11.0 L (11.4-16.0) gm/dL Hct 31.6 L (34.0-46.0) % Plt Count 126 L (150-450) k/uL Neutrophils # 9.4 H (1.3-7.7) k/uL Lymphocytes # 0.6 L (1.0-4.8) k/uL Phosphorus 2.4 L (2.5-4.5) mg/dL Microbiology - Last 24 Hours (Table) 02/15/22 09:51 Blood Culture - Preliminary Blood No Growth after 48 hours 02/15/22 09:35 Blood Culture - Preliminary Blood No Growth after 48 hours Assessment and Plan Assessment: 1. Anteriorsuperior nondisplaced fracture, C7 vertebral body; T5 vertebral compression fracture, chronic 2. Multiple medical comorbidities Plan: 1. Anteriorsuperior nondisplaced fracture, C7 vertebral body; T5 vertebral compression fracture, chronic - patient stable at bedside this afternoon. At this time patient does not need any emergent/urgent orthopedic surgical intervention. Hard c-collar has been ordered and awaiting arrival. Patient is to wear hard c-collar at all times. At this time we'll manage conservatively with pain medications as needed. We'll continue to follow patient while in hospital. 2. Appreciate medical management 3. Pain management - Tylenol 4. DVT prophylaxis - Plavix 5. GI prophylaxis - Protonix 6. PT/OT - weightbearing as tolerated walker and assistance - hard c-collar on at all times Time with Patient: Less than 30
[2022-02-17] MEDS: MAG HYDROX/AL HYDROX/SIMETH 30 ML, diphenhydrAMINE ELIXIR 75 MG, LIDOCAINE VISCOUS 2% 3... PO SCH ×3 (16:49)
[2022-02-17] MEDS: ACETAMINOPHEN TAB 325 MG TAB PO PRN ×2 (16:56→23:10)
[2022-02-17] MEDS: ALPRAZolam 0.25 MG TAB PO PRN ×2 (16:56→23:16)
--- NOTE | 2022-02-17 21:09 | P.PN ---
Subjective Progress Note Date: 02/17/22 Principal diagnosis: Leukocytosis possible diverticulitis Patient is 81 year old female presenting to the hospital with a fall this patient also complaining of some abdominal bloating and discomfort did have elevated white count for the patient did have a CT of abdominal pelvis evidence of significant diverticulosis and possible colitis. On today's evaluation that is 02/17/2022, the patient remains to be afebrile, the patient is breathing comfortably denies any chest pain shortness of breath or cough no abdominal pain is currently controlled no nausea no vomiting and no diarrhea Objective - Vital Signs Vital signs: Vital Signs Temp 97.3 F L 02/17/22 03:45 Pulse 109 H 02/17/22 12:00 Resp 16 02/17/22 12:00 BP 86/50 02/17/22 12:00 Pulse Ox 95 02/17/22 12:00 Intake & Output 02/16/22 02/17/22 02/17/22 18:59 06:59 18:59 Intake Total 580 180 Balance 580 180 Intake: Intake, IV Titration 100 Amount Ampicillin-Sulbactam 3 gm 100 In Sodium Chloride 0.9% 100 ml @ 200 mls/hr IVPB Q8HR [facility] Rx#:[id number] Oral 480 180 Other: # Voids 4 3 2 # Bowel Movements 2 0 - Exam GENERAL DESCRIPTION: An elderly female lying in bed in no distress RESPIRATORY SYSTEM: Unlabored breathing , decreased breath sounds at bases HEART: S1 S2 regular rate and rhythm , ABDOMEN: Soft , no tenderness EXTREMITIES: No edema feet - Labs CBC & Chem 7: 02/17/22 07:23 02/16/22 05:52 Labs: Abnormal Lab Results - Last 24 Hours (Table) 02/17/22 02/17/22 Range/Units 07:23 07:23 WBC 10.9 H (3.8-10.6) k/uL RBC 3.32 L (3.80-5.40) m/uL Hgb 11.0 L (11.4-16.0) gm/dL Hct 31.6 L (34.0-46.0) % Plt Count 126 L (150-450) k/uL Neutrophils # 9.4 H (1.3-7.7) k/uL Lymphocytes # 0.6 L (1.0-4.8) k/uL Phosphorus 2.4 L (2.5-4.5) mg/dL Microbiology - Last 24 Hours (Table) 02/15/22 09:51 Blood Culture - Preliminary Blood No Growth after 48 hours 02/15/22 09:35 Blood Culture - Preliminary Blood No Growth after 48 hours Assessment and Plan (1) Leukocytosis Current Visit: Yes Status: Acute Code(s): D72.829 - ELEVATED WHITE BLOOD CELL COUNT, UNSPECIFIED SNOMED Code(s): 323494408 Plan: 1patient presented to hospital with a syncopal episode this patient did have a fall in the bathroom prior to that the patient was complaining of abdominal bloating and gas patient did have mild distention and slightly tender likely concerning for abdominal source and will need to cover for the enteric gram- negative katharine 2- CT of abdominal pelvis with oral contrast did show extensive diverticulosis and possible colitis likely the source of elevated white count 3- patient initial clinical improvement in the white count is normalized to continue with the Unasyn finishing therapy with oral Augmentin Time with Patient: Less than 30
[2022-02-17] MEDS: LATANOPROST 0.005% OPHTH DROPS 2.5 ML BTL BOTH EYES SCH (21:47)
[2022-02-17] MEDS: MONTELUKAST 10 MG TAB PO SCH (21:48)
[2022-02-17] MEDS ORDERED: SODIUM CHLORIDE 0.65% NASAL SPRAY 44 ML BTL INTRANASAL PRN (23:14)
[2022-02-17] MEDS ORDERED: ADENOSINE 3 MG/ML 2 ML VIAL IVP ONE (23:54)
--- NOTE | 2022-02-18 00:12 | P.PN ---
Progress Note - Text Progress Note Date: 02/18/22 sudden episode of chest discomfort, site monitor showed heart rate in the 180s patient awake alert, feels discomfort in the chest radiates to the jaw on exam lungs good breath sounds , heart rate 180s, BP 107/67 heart tachycardia, no murmurs ,no peripheral edema patient was given one dose of adenosine 6 mg IVP , revealed background of afib with RVR, patient tolerated well. reviewing records, showed that her BP meds including PO cardizem , were on hold due to hypotension earlier SVT, afib with RVR initiate heparin drip cardizem bolus and drip cardiology eval continue site monitor [id number] mg cardiology consult Total amount of critical care time spent was 35 minutes not counting procedures performed.
[2022-02-18] MEDS ORDERED: DILTIAZEM DRIP BOLUS FROM BAG 1 MG SOLN IV ONE (00:31)
[2022-02-18] MEDS: MAG HYDROX/AL HYDROX/SIMETH 30 ML, diphenhydrAMINE ELIXIR 75 MG, LIDOCAINE VISCOUS 2% 3... PO SCH ×9 (01:19→17:06)
[2022-02-18] MEDS: DILTIAZEM 125 MG in SODIUM CHLORIDE 0.9% 100 ML IV SCH (01:28)
[2022-02-18] MEDS ORDERED: ASPIRIN 325 MG TAB PO ONE (02:00)
[2022-02-18] MEDS: HEPARIN SOD,PORK IN 0.45% NACL 25,000 UNIT in 0.45% NACL 1 250ML.BAG IV SCH (02:30)
[2022-02-18] MEDS: PANTOPRAZOLE 40 MG TABLET PO SCH (06:57)
[2022-02-18] MEDS: MIDODRINE 5 MG TAB PO SCH ×2 (06:58→17:02)
[2022-02-18 07:09] LABS: Basophils % (A) 0 %; Eosinophils # (A) 0.1 k/uL (0-0.7); Eosinophils % (A) 1 %; HCT 31.3 % (34.0-46.0); HGB 10.9 gm/dL (11.4-16.0); Lymphocytes # (A) 0.7 k/uL (1.0-4.8); Lymphocytes % (A) 8 %; MCH 32.9 pg (25.0-35.0); MCHC 34.9 g/dL (31.0-37.0); MCV 94.1 fL (80.0-100.0); Mean Platelet Volume 8.6; Monocytes # (A) 0.5 k/uL (0-1.0); Monocytes % (A) 6 %; Neutrophils # (A) 7.2 k/uL (1.3-7.7); Neutrophils % (A) 83 %; Platelet Count 103 k/uL (150-450); RBC 3.32 m/uL (3.80-5.40); RDW 13.5 % (11.5-15.5); WBC 8.6 k/uL (3.8-10.6)
[2022-02-18] MEDS: IPRATROPIUM-ALBUTEROL 3 ML NEB INHALATION PRN (07:32)
[2022-02-18] MEDS: BUDESONIDE 0.5 MG/2 ML NEBU INHALATION SCH ×2 (07:32→19:46)
[2022-02-18] MEDS: AMPICILLIN-SULBACTAM 3 GM in SODIUM CHLORIDE 0.9% 100 ML IVPB SCH ×2 (09:31→17:06)
[2022-02-18] MEDS: CLOPIDOGREL 75 MG TAB PO SCH (09:31)
[2022-02-18 12:04] LABS: T4, Free (Free Thyroxine) 1.85 ng/dL (0.78-2.19)
--- NOTE | 2022-02-18 14:01 | P.PN ---
Subjective Progress Note Date: 02/18/22 Principal diagnosis: Anteriorsuperior nondisplaced fracture, C7 vertebral body; T5 vertebral compression fracture, chronic Patient was seen at bedside this morning resting comfortably lying in the semirecumbent position with hard c-collar on. Patient says she is not having an y neck pain and does not want to wear the c-collar. Patient denies increasing chest pain, increasing shortness of breath, nausea, vomiting, change in vision, loss of bowel/bladder control. Objective - Vital Signs Vital signs: Vital Signs Temp 97.3 F L 02/18/22 04:00 Pulse 94 02/18/22 12:00 Resp 16 02/18/22 12:00 BP 121/57 02/18/22 12:00 Pulse Ox 97 02/18/22 12:00 Intake & Output 02/17/22 02/18/22 02/18/22 18:59 06:59 18:59 Intake Total 380 500 Balance 380 500 Intake: Intake, IV Titration 200 100 Amount Ampicillin-Sulbactam 3 gm 200 100 In Sodium Chloride 0.9% 100 ml @ 200 mls/hr IVPB Q8HR [facility] Rx#:[id number] Oral 180 400 Other: # Voids 2 2 1 - Exam Negative for any erythema, ecchymosis, open fractures, nodules. Distended abdomen. Abrasion on bridge of nose. Sensation is equal, symmetric, b ilaterally intact throughout the upper and lower extremities. Patient does have some mild to moderate tenderness palpation throughout the abdomen which is distended. Patient NTTP over cervical spine. Nontender to palpation throughout rest of exam. Patient has good range of motion bilateral upper extremities. Patient is wearing hard cervical collar currently. On physical exam patient is able to flex and extend, rotate neck to both shoulders and bend neck to both sides without any neck pain. Patient does have limited range of motion in the bilateral lower extremities and hip flexion knee flexion/extension due to weakness. Patient does have full range of motion plantar/dorsiflexion of ankl es. 5/5 strength in all major motor groups in the bilateral upper extremities. 4-/5 in all major motor groups in the lower extremities bilaterally. Neurovascular status is intact bilaterally. Dorsalis pedis pulse intact, 2+ bilaterally. Cap refill under 3 seconds in digits upper extremities. Negative Homans bilaterally. Negative clonus bilaterally. - Labs CBC & Chem 7: 02/18/22 05:31 02/16/22 05:52 Labs: Abnormal Lab Results - Last 24 Hours (Table) 02/18/22 02/18/22 02/18/22 Range/Units 05:31 05:31 11:17 RBC 3.32 L (3.80-5.40) m/uL Hgb 10.9 L (11.4-16.0) gm/dL Hct 31.3 L (34.0-46.0) % Plt Count 103 L (150-450) k/uL Lymphocytes # 0.7 L (1.0-4.8) k/uL Troponin I 0.085 H* (0.000-0.034) ng/mL TSH 0.118 L (0.465-4.680) mIU/L Microbiology - Last 24 Hours (Table) 02/15/22 09:51 Blood Culture - Preliminary Blood No Growth after 72 hours 02/15/22 09:35 Blood Culture - Preliminary Blood No Growth after 72 hours Assessment and Plan Assessment: 1. Anteriorsuperior nondisplaced fracture, C7 vertebral body; T5 vertebral compression fracture, chronic 2. Multiple medical comorbidities Plan: 1. Anteriorsuperior nondisplaced fracture, C7 vertebral body; T5 vertebral compression fracture, chronic - patient stable at bedside this afternoon. At this time patient does not need any emergent/urgent orthopedic surgical intervention. Patient is wearing hard cervical collar currently. On physical exam patient is able to flex and extend, rotate neck to both shoulders and bend neck to both sides without any neck pain. Patient may use soft cervical collar instead of hard cervical collar, but c-collar must be kept on at all times. At this time we'll manage conservatively with pain medications as needed. Patient is stable from orthopedic standpoint for discharge. We do recommend patient to follow up in office with Dr. Negrete. At this time orthopedics is signing off. Please do not hesitate to contact us for any further questions. 2. Appreciate medical management 3. Pain management - Tylenol 4. DVT prophylaxis - Plavix 5. GI prophylaxis - Protonix 6. PT/OT - weightbearing as tolerated walker and assistance - hard/soft c- collar on at all times Time with Patient: Less than 30
--- NOTE | 2022-02-18 15:15 | P.PN ---
Subjective Progress Note Date: 02/18/22 Principal diagnosis: Leukocytosis possible diverticulitis Patient is 81 year old female presenting to the hospital with a fall this patient also complaining of some abdominal bloating and discomfort did have elevated white count for the patient did have a CT of abdominal pelvis evidence of significant diverticulosis and possible colitis. On today's evaluation that is 02/18/2022, the patient continues to be afebrile, the patient is breathing comfortably on nasal cannula oxygen, the patient denies any chest pain shortness of breath or cough no abdominal pain is currently controlled no nausea no vomiting and no diarrhea Objective - Vital Signs Vital signs: Vital Signs Temp 97.3 F L 02/18/22 04:00 Pulse 94 02/18/22 12:00 Resp 16 02/18/22 12:00 BP 121/57 02/18/22 12:00 Pulse Ox 97 02/18/22 12:00 Intake & Output 02/17/22 02/18/22 02/18/22 18:59 06:59 18:59 Intake Total 380 500 Balance 380 500 Intake: Intake, IV Titration 200 100 Amount Ampicillin-Sulbactam 3 gm 200 100 In Sodium Chloride 0.9% 100 ml @ 200 mls/hr IVPB Q8HR [facility] Rx#:[id number] Oral 180 400 Other: # Voids 2 2 1 - Exam GENERAL DESCRIPTION: An elderly female lying in bed in no distress RESPIRATORY SYSTEM: Unlabored breathing , decreased breath sounds at bases HEART: S1 S2 regular rate and rhythm , ABDOMEN: Soft , no tenderness EXTREMITIES: No edema feet - Labs CBC & Chem 7: 02/18/22 05:31 02/16/22 05:52 Labs: Abnormal Lab Results - Last 24 Hours (Table) 02/18/22 02/18/22 02/18/22 Range/Units 05:31 05:31 11:17 RBC 3.32 L (3.80-5.40) m/uL Hgb 10.9 L (11.4-16.0) gm/dL Hct 31.3 L (34.0-46.0) % Plt Count 103 L (150-450) k/uL Lymphocytes # 0.7 L (1.0-4.8) k/uL Troponin I 0.085 H* (0.000-0.034) ng/mL TSH 0.118 L (0.465-4.680) mIU/L Microbiology - Last 24 Hours (Table) 02/15/22 09:51 Blood Culture - Preliminary Blood No Growth after 72 hours 02/15/22 09:35 Blood Culture - Preliminary Blood No Growth after 72 hours Assessment and Plan (1) Leukocytosis Current Visit: Yes Status: Acute Code(s): D72.829 - ELEVATED WHITE BLOOD CELL COUNT, UNSPECIFIED SNOMED Code(s): 085712659 Plan: 1patient presented to hospital with a syncopal episode this patient did have a fall in the bathroom prior to that the patient was complaining of abdominal bloating and gas patient did have mild distention and slightly tender likely concerning for abdominal source and will need to cover for the enteric gram- negative katharine 2- CT of abdominal pelvis with oral contrast did show extensive diverticulosis and possible colitis likely the source of elevated white count 3- patient is currently clinically improving patient to continue with IV Unasyn while inpatient and monitor clinical course closely Time with Patient: Less than 30
--- NOTE | 2022-02-18 15:56 | P.PN ---
Subjective History of Present Illness Chief Complaint: Loss of consciousness This is a very pleasant 81-year-old female who was brought to [facility] Department by EMS for evaluation of syncope. Patient has history of COPD on home oxygen, hypertension, hypothyroidism. Home medications include Norvasc, lisinopril, Cardizem, Plavix, inhale corticoster oids, dilators and levothyroxine. Patient states that about a week ago she was admitted at [facility] in [place] for respiratory issues, COPD exacerbation. About 3 days prior to this admission she was [facility] jail [facility] on Lasix prednisone, and antibiotics. Prior to that she would typically not take Lasix. Patient states that she was in usual state of health yesterday until in the evening she had a fish sandwich. After that overnight she started experiencing some cramping in the lower part of her abdomen. She did not have any diarrhea. She denies any fever or chills or any respiratory complaints. No dysuria or foul-smelling urine or hematuria. This morning she went to the bathroom and experienced nausea and was retching, no vomiting when she started feeling lightheaded with hot flashes and she collapsed and blacked out. Since she's been residing in a jail facility, EMS was called and she was transferred to ER. En route, EMS measure her systolic blood pressure 7080s. She was given bolus of IV fluids which led to quick improvement in her blood pressure. Patient stated that she did not lose consciousness completely, just feeling very lightheaded. She was not having any confusion. She did not have any involuntary movement of bowels or incontinence of urine. No tongue biting no seizure-like activity described. She denies any headache vision changes scintillations chest pain or palpitations before and after the event. During my interview patient stated that she is currently feeling much better after IV fluids and does not have any complaints. She unfortunately hurt her head with this fall and she does have small hematoma on the right side of her forehead but she currently denies any headache or vision changes. In the emergency department, found to have a blood cell count 24,000 with predominance of neutrophils. Stable hemoglobin. Creatinine of 1.7 beats BUNs of 67 normal anion gap serum bicarbonate of 37 and sodium 10/30/1929 and chloride of 89. Patient denied any previous history of renal insufficiency. Imaging: CT of the head without any acute intracranial changes. She does have small right frontal scalp hematoma. CT of the cervical and thoracic spine showing T5 vertebral body collapse chronically in nature. Questionable artifact versus subtle nondisplaced fracture and C7 vertebral body which could be acute or chronic clinical correlation advised. Other changes as per report Interval history: 02/16 patient was examined at the bedside. She is confused. Only alert and oriented to herself. She denies any chest pain or shortness of breath 02/17 patient was seen and examined at the bedside. She is awake and oriented 2. She is complaining of heartburn 02/18 patient was examined at the bedside. Patient was complaining of chest pain overnight with A. fib with RVR heart rate 180s Physical examination: Awake alert oriented 2 Head and neck: Small right sided frontal scalp hematoma no skull depressions or excoriations Anicteric sclera and oropharyngeal mucosa moist without any lesions no neck masses no JVD Neck supple without any point tenderness without rigidity Lungs: Clear to auscultation Cardiovascular: Regular rhythm and rate S1 posterior Abdomen: Bowel sounds present throughout, abdomen is soft nontender nondistended no organomegaly no masses, no suprapubic tenderness no flank tenderness right upper quadrant tenderness Extremities: No peripheral edema no cyanosis warm well perfused DP pulses present bilateral Musculoskeletal: No deformities Neurological: Awake alert oriented 3, cranial nerves II through XII intact, motor strength is 5 out of 5 in upper and lower extremities proximally and distally, no ankle clonus , nontender reflexes laxer bilateral, sensitivity to light touch in upper limits immitis preserved no asterixis [id number] intact Assessment and plan: #Fall and presyncope Patient presents with hypotension, component of vasovagal reaction, orthostasis in the setting of diuresis dehydration multiple blood pressure medications Improved with IV fluid Hold blood pressure medications, hold Lasix #Anteriorsuperior nondisplaced fracture, C7 vertebral body; T5 vertebral compression fracture, chronic -per Orthopedic Surgery no need for urgent surgical intervention -Patient wearing cervical collar #New-onset A. fib with RVR -Patient started on a Cardizem drip and IV heparin -Cardiology consulted #SIRS, leukocytosis rule out sepsis Reactive due to use of systemic steroids and dehydration Septic workup, blood cultures came back negative UA with cultures Chest x-ray without acute findings Per infectious disease CT of abdominal pelvis with oral contrast did show extensive diverticulosis and possible colitis likely the source of elevated white count 3- patient initial clinical improvement in the white count is normalized to continue with the Unasyn finishing therapy with oral Augmentin #Elevated troponin No active chest pain No acute EKG findings The patient asymptomatic cardiology consultation Echocardiogram echo with mild left ventricular concentric hypertrophy with preserved LV function. Mitral annular calcification and thickened aortic valve leaflets. Mild tricuspid regurgitation. No pericardial effusion Keep on telemetry #Acute kidney injury Suspected to be prerenal Continue IV fluids UA: No significant proteinuria no RBCs or WBCs Ultrasound of the kidneys, bladder scan Nephrology consultation #Chronic hypoxic respiratory failure COPD without acute exacerbation, on home oxygen 34 liters Continue oxygen, continue nebulizers #Elevated liver enzymes Normal bilirubin and alkaline phosphatase Trend liver enzymes, may need ultrasound #Closed head trauma Due to fall CT of the head and cervical spine obtained Consider or to/neurosurgery consult #Hypothyroidism Continue levothyroxine #Hypertension Hold home blood pressure medications due to hypotension DVT prophylaxis SCDs Patient will need more than 2 minutes hospital stay Objective - Vital Signs Vital signs: Vital Signs Temp 97.3 F L 02/18/22 04:00 Pulse 94 02/18/22 12:00 Resp 16 02/18/22 12:00 BP 121/57 02/18/22 12:00 Pulse Ox 97 02/18/22 12:00 Intake & Output 02/17/22 02/18/22 02/18/22 18:59 06:59 18:59 Intake Total 380 500 Balance 380 500 Intake: Intake, IV Titration 200 100 Amount Ampicillin-Sulbactam 3 gm 200 100 In Sodium Chloride 0.9% 100 ml @ 200 mls/hr IVPB Q8HR [facility] Rx#:[id number] Oral 180 400 Other: # Voids 2 2 1 - Labs CBC & Chem 7: 02/18/22 05:31 02/16/22 05:52 Labs: Abnormal Lab Results - Last 24 Hours (Table) 02/18/22 02/18/22 02/18/22 Range/Units 05:31 05:31 11:17 RBC 3.32 L (3.80-5.40) m/uL Hgb 10.9 L (11.4-16.0) gm/dL Hct 31.3 L (34.0-46.0) % Plt Count 103 L (150-450) k/uL Lymphocytes # 0.7 L (1.0-4.8) k/uL Troponin I 0.085 H* (0.000-0.034) ng/mL TSH 0.118 L (0.465-4.680) mIU/L Microbiology - Last 24 Hours (Table) 02/15/22 09:51 Blood Culture - Preliminary Blood No Growth after 72 hours 02/15/22 09:35 Blood Culture - Preliminary Blood No Growth after 72 hours
[2022-02-18] MEDS: LATANOPROST 0.005% OPHTH DROPS 2.5 ML BTL BOTH EYES SCH (22:20)
[2022-02-18] MEDS: FLUTICASONE 50MCG/SPRAY NASAL 16GM EA NOSTRIL SCH ×2 (22:21)
[2022-02-18] MEDS: MONTELUKAST 10 MG TAB PO SCH (22:23)
[2022-02-19] MEDS: AMPICILLIN-SULBACTAM 3 GM in SODIUM CHLORIDE 0.9% 100 ML IVPB SCH ×3 (00:01→17:51)
[2022-02-19] MEDS: DILTIAZEM 125 MG in SODIUM CHLORIDE 0.9% 100 ML IV SCH ×2 (00:07→08:29)
[2022-02-19] MEDS: MAG HYDROX/AL HYDROX/SIMETH 30 ML, diphenhydrAMINE ELIXIR 75 MG, LIDOCAINE VISCOUS 2% 3... PO SCH ×9 (00:10→17:48)
[2022-02-19 03:11] LABS: Basophils % (A) 0 %; Eosinophils # (A) 0.1 k/uL (0-0.7); Eosinophils % (A) 1 %; HCT 29.5 % (34.0-46.0); HGB 10.3 gm/dL (11.4-16.0); Lymphocytes # (A) 0.7 k/uL (1.0-4.8); Lymphocytes % (A) 7 %; MCHC 34.8 g/dL (31.0-37.0); MCV 94.7 fL (80.0-100.0); Mean Platelet Volume 8.3; Monocytes # (A) 0.6 k/uL (0-1.0); Monocytes % (A) 6 %; Neutrophils # (A) 8.8 k/uL (1.3-7.7); Neutrophils % (A) 85 %; Platelet Count 109 k/uL (150-450); RBC 3.12 m/uL (3.80-5.40); RDW 13.6 % (11.5-15.5); WBC 10.3 k/uL (3.8-10.6)
[2022-02-19 03:36] LABS: Hepatitis A Antibody IgM Nonreactive (Nonreactive); Hepatitis B Core IgM Nonreactive (Nonreactive); Hepatitis B Surface Antigen Nonreactive (Nonreactive); Hepatitis C IgG Antibody Nonreactive (Nonreactive)
[2022-02-19 03:39] LABS: ALT 48 U/L (4-34); AST 36 U/L (14-36); African American GFR (CKD) >90 (>60 ml/min/1.73 sqM); Albumin 2.4 g/dL (3.5-5.0); Alkaline Phosphatase 68 U/L (38-126); Anion Gap 2 mmol/L; Blood Urea Nitrogen 17 mg/dL (7-17); Calcium 7.9 mg/dL (8.4-10.2); Carbon Dioxide 34 mmol/L (22-30); Chloride 99 mmol/L (98-107); Glucose 94 mg/dL (74-99); Magnesium 1.4 mg/dL (1.6-2.3); Non-African American GFR(CKD) 88 (>60 ml/min/1.73 sqM); Potassium 2.9 mmol/L (3.5-5.1); Sodium 135 mmol/L (137-145); Total Bilirubin 0.6 mg/dL (0.2-1.3); Total Protein 4.6 g/dL (6.3-8.2)
[2022-02-19] MEDS: PANTOPRAZOLE 40 MG TABLET PO SCH (07:00)
[2022-02-19] MEDS: MIDODRINE 5 MG TAB PO SCH ×2 (07:00→17:51)
[2022-02-19] MEDS: BUDESONIDE 0.5 MG/2 ML NEBU INHALATION SCH ×2 (07:22→20:08)
[2022-02-19] MEDS: HEPARIN SOD,PORK IN 0.45% NACL 25,000 UNIT in 0.45% NACL 1 250ML.BAG IV SCH (08:29)
[2022-02-19] MEDS: CLOPIDOGREL 75 MG TAB PO SCH (10:07)
[2022-02-19] MEDS: ALPRAZolam 0.25 MG TAB PO PRN (10:14)
--- NOTE | 2022-02-19 10:20 | P.PN ---
Subjective Progress Note Date: 02/19/22 Principal diagnosis: 81-year-old female followed up for acute kidney injury secondary to low blood pressure. She is known with COPD hypertension and hypothyroidism, admitted with abdominal pain nausea vomiting and lightheadedness. She had a syncopal episode. Blood pressure was low in the 70s to 80s. She had acute kidney injury secondary to this. Creatinine has improved with hydration She uses oxygen at home She is known with coronary artery disease history of LA and may not phenomena. Objective - Vital Signs Vital signs: Vital Signs Temp 98.2 F 02/19/22 04:00 Pulse 86 02/19/22 04:00 Resp 16 02/19/22 04:00 BP 104/44 02/19/22 04:00 Pulse Ox 94 L 02/19/22 04:00 Intake & Output 02/18/22 02/19/22 02/19/22 18:59 06:59 18:59 Intake Total 125 356.936 0 Output Total 1 Balance 124 356.936 0 Intake: Intake, IV Titration 125 116.936 Amount Diltiazem 125 mg In 125 Sodium Chloride 0.9% 100 ml @ 10 MG/HR 10 mls/hr IV .[id number] [facility] Rx#: [id number] Heparin Sod,Pork in 0.45% 116.936 NaCl 25,000 unit In 0.45 % NaCl 1 250ml.bag @ 12 UNITS/KG/HR 7.087 mls/hr IV .Q24H [facility] Rx#: [id number] Oral 240 0 Output: Urine 1 Other: # Voids 1 1 # Bowel Movements 1 On examination she is on nasal cannula oxygen slightly short of breath but co mfortable HEENT exam no JVP neck is supple no facial asymmetry Lungs are significant for bilateral lateral diminished air entry occasional coarse crackles. Heart sounds unremarkable no murmur rub gallop Abdomen soft nontender Extremity exam was no edema Neurologically awake alert oriented but has generalized weakness - Labs CBC & Chem 7: 02/19/22 02:34 02/19/22 02:34 Labs: Abnormal Lab Results - Last 24 Hours (Table) 02/18/22 02/18/22 02/18/22 Range/Units 05:31 11:17 16:06 RBC (3.80-5.40) m/uL Hgb (11.4-16.0) gm/dL Hct (34.0-46.0) % Plt Count (150-450) k/uL Neutrophils # (1.3-7.7) k/uL Lymphocytes # (1.0-4.8) k/uL APTT (22.0-30.0) sec Sodium (137-145) mmol/L Potassium (3.5-5.1) mmol/L Carbon Dioxide (22-30) mmol/L Calcium (8.4-10.2) mg/dL Magnesium (1.6-2.3) mg/dL ALT (4-34) U/L Troponin I 0.085 H* 0.091 H* (0.000-0.034) ng/mL Total Protein (6.3-8.2) g/dL Albumin (3.5-5.0) g/dL TSH 0.118 L (0.465-4.680) mIU/L 02/18/22 02/18/22 02/19/22 Range/Units 18:10 18:10 02:34 RBC 3.12 L (3.80-5.40) m/uL Hgb 10.3 L (11.4-16.0) gm/dL Hct 29.5 L (34.0-46.0) % Plt Count 109 L (150-450) k/uL Neutrophils # 8.8 H (1.3-7.7) k/uL Lymphocytes # 0.7 L (1.0-4.8) k/uL APTT 108.9 H* (22.0-30.0) sec Sodium (137-145) mmol/L Potassium (3.5-5.1) mmol/L Carbon Dioxide (22-30) mmol/L Calcium (8.4-10.2) mg/dL Magnesium (1.6-2.3) mg/dL ALT (4-34) U/L Troponin I 0.098 H* (0.000-0.034) ng/mL Total Protein (6.3-8.2) g/dL Albumin (3.5-5.0) g/dL TSH (0.465-4.680) mIU/L 02/19/22 02/19/22 Range/Units 02:34 02:34 RBC (3.80-5.40) m/uL Hgb (11.4-16.0) gm/dL Hct (34.0-46.0) % Plt Count (150-450) k/uL Neutrophils # (1.3-7.7) k/uL Lymphocytes # (1.0-4.8) k/uL APTT 62.2 H (22.0-30.0) sec Sodium 135 L (137-145) mmol/L Potassium 2.9 L (3.5-5.1) mmol/L Carbon Dioxide 34 H (22-30) mmol/L Calcium 7.9 L (8.4-10.2) mg/dL Magnesium 1.4 L (1.6-2.3) mg/dL ALT 48 H (4-34) U/L Troponin I (0.000-0.034) ng/mL Total Protein 4.6 L (6.3-8.2) g/dL Albumin 2.4 L (3.5-5.0) g/dL TSH (0.465-4.680) mIU/L Microbiology - Last 24 Hours (Table) 02/15/22 09:51 Blood Culture - Preliminary Blood No Growth after 72 hours 02/15/22 09:35 Blood Culture - Preliminary Blood No Growth after 72 hours Assessment and Plan Assessment: Impression 1. Acute kidney injury secondary to low blood pressure, improved with hydration. Creatinine 0.57. 2. Hypokalemia potassium is 2.9 today she has received 1 dose of Lasix 2 days ago. Magnesium is somewhat low at 1.4. She is on PPI and mild cause low magnesium. This does have induced some amount of urine a potassium loss. No nausea vomiting diarrhea. 3. History of COPD on O2 chronically and short of breath at rest baseline. 4. Low magnesium secondary to PPI most likely Medications 1. Will give her 20 mg of KCl by mouth every one hour for 4 doses 2. Repeat labs tomorrow. 3. Magnesium sulfate 4 g IV over 6 hours
[2022-02-19] MEDS ORDERED: Magnesium Replacement Protocol 1 EACH MISC MISCELLANE PRN (12:01)
--- NOTE | 2022-02-19 12:24 | P.PN ---
Subjective Patient appears short of breath at rest. She is on of back pain and neck pain Yesterday she ventricular tachycardia The twelve-lead EKG shows narrow complex SVT with ST depression She was treated with IV Cardizem Today she is back in sinus rhythm On examination breath sounds are reduced bilaterally A renal function is normalized Heart sounds S1 and S2 are soft a Impression Symptomatic ventricular tachycardia with RVR Suggest Start Multaq 400 twice a day for suppression This appears to be atrial tachycardia versus SVT with RVR We will review all telemetry strips Stop heparin and IV Cardizem I have started her on ELIQUIS 2.5 mg twice daily but I will review her telemetry strips to see if this is truly A. fib or SVT Objective - Vital Signs Vital signs: Vital Signs Temp 97.3 F L 02/19/22 08:00 Pulse 78 02/19/22 08:00 Resp 16 02/19/22 08:00 BP 123/70 02/19/22 08:00 Pulse Ox 98 02/19/22 08:00 Intake & Output 02/18/22 02/19/22 02/19/22 18:59 06:59 18:59 Intake Total 125 356.936 0 Output Total 1 1 Balance 124 356.936 -1 Intake: Intake, IV Titration 125 116.936 Amount Diltiazem 125 mg In 125 Sodium Chloride 0.9% 100 ml @ 10 MG/HR 10 mls/hr IV .[id number] [facility] Rx#: [id number] Heparin Sod,Pork in 0.45% 116.936 NaCl 25,000 unit In 0.45 % NaCl 1 250ml.bag @ 12 UNITS/KG/HR 7.087 mls/hr IV .Q24H [facility] Rx#: [id number] Oral 240 0 Output: Urine 1 Stool 1 Other: # Voids 1 1 # Bowel Movements 1 - Labs CBC & Chem 7: 02/19/22 02:34 02/19/22 02:34 Labs: Abnormal Lab Results - Last 24 Hours (Table) 02/18/22 02/18/22 02/18/22 Range/Units 11:17 16:06 18:10 RBC (3.80-5.40) m/uL Hgb (11.4-16.0) gm/dL Hct (34.0-46.0) % Plt Count (150-450) k/uL Neutrophils # (1.3-7.7) k/uL Lymphocytes # (1.0-4.8) k/uL APTT (22.0-30.0) sec Sodium (137-145) mmol/L Potassium (3.5-5.1) mmol/L Carbon Dioxide (22-30) mmol/L Calcium (8.4-10.2) mg/dL Magnesium (1.6-2.3) mg/dL ALT (4-34) U/L Troponin I 0.085 H* 0.091 H* 0.098 H* (0.000-0.034) ng/mL Total Protein (6.3-8.2) g/dL Albumin (3.5-5.0) g/dL 02/18/22 02/19/22 02/19/22 Range/Units 18:10 02:34 02:34 RBC 3.12 L (3.80-5.40) m/uL Hgb 10.3 L (11.4-16.0) gm/dL Hct 29.5 L (34.0-46.0) % Plt Count 109 L (150-450) k/uL Neutrophils # 8.8 H (1.3-7.7) k/uL Lymphocytes # 0.7 L (1.0-4.8) k/uL APTT 108.9 H* (22.0-30.0) sec Sodium 135 L (137-145) mmol/L Potassium 2.9 L (3.5-5.1) mmol/L Carbon Dioxide 34 H (22-30) mmol/L Calcium 7.9 L (8.4-10.2) mg/dL Magnesium 1.4 L (1.6-2.3) mg/dL ALT 48 H (4-34) U/L Troponin I (0.000-0.034) ng/mL Total Protein 4.6 L (6.3-8.2) g/dL Albumin 2.4 L (3.5-5.0) g/dL 02/19/22 Range/Units 02:34 RBC (3.80-5.40) m/uL Hgb (11.4-16.0) gm/dL Hct (34.0-46.0) % Plt Count (150-450) k/uL Neutrophils # (1.3-7.7) k/uL Lymphocytes # (1.0-4.8) k/uL APTT 62.2 H (22.0-30.0) sec Sodium (137-145) mmol/L Potassium (3.5-5.1) mmol/L Carbon Dioxide (22-30) mmol/L Calcium (8.4-10.2) mg/dL Magnesium (1.6-2.3) mg/dL ALT (4-34) U/L Troponin I (0.000-0.034) ng/mL Total Protein (6.3-8.2) g/dL Albumin (3.5-5.0) g/dL Microbiology - Last 24 Hours (Table) 02/15/22 09:51 Blood Culture - Preliminary Blood No Growth after 96 hours 02/15/22 09:35 Blood Culture - Preliminary Blood No Growth after 96 hours
[2022-02-19] MEDS: APIXABAN 2.5 MG TABLET PO SCH ×2 (13:04→21:23)
[2022-02-19] MEDS: POTASSIUM CHLORIDE ER 20 MEQ TAB.ER PO SCH ×4 (13:05→17:50)
[2022-02-19] MEDS: MAGNESIUM SULFATE-D5W PMX 1 GM in DEXTROSE/WATER 1 100ML.BAG IVPB SCH ×3 (13:05→15:45)
[2022-02-19] MEDS: DRONEDARONE 400 MG TAB PO SCH ×2 (13:05→21:24)
--- NOTE | 2022-02-19 14:31 | P.PN ---
Subjective Progress Note Date: 02/19/22 History of Present Illness Chief Complaint: Loss of consciousness This is a very pleasant 81-year-old female who was brought to [facility] Department by EMS for evaluation of syncope. Patient has history of COPD on home oxygen, hypertension, hypothyroidism. Home medications include Norvasc, lisinopril, Cardizem, Plavix, inhale corticosteroids, dilators and levothyroxine. Patient states that about a week ago she was admitted at [facility] in [place] for respiratory issues, COPD exacerbation. About 3 days prior to this admission she was discharged to senior care facility on Lasix prednisone, and antibiotics. Prior to that she would typically not take Lasix. Patient states that she was in usual state of health yesterday until in the evening she had a fish sandwich. After that overnight she started experiencing some cramping in the lower part of her abdomen. She did not have any diarrhea. She denies any fever or chills or any respiratory complaints. No dysuria or foul-smelling urine or hematuria. This morning she went to the bathroom and experienced nausea and was retching, no vomiting when she started feeling lightheaded with hot flashes and she collapsed and blacked out. Since she's been residing in a senior care facility, EMS was called and she was transferred to ER. En route, EMS measure her systolic blood pressure 7080s. She was given bolus of IV fluids which led to quick improvement in her blood pressure. Patient stated that she did not lose consciousness completely, just feeling very lightheaded. She was not having any confusion. She did not have any involuntary movement of bowels or incontinence of urine. No tongue biting no seizure-like activity described. She denies any headache vision changes scin tillations chest pain or palpitations before and after the event. During my interview patient stated that she is currently feeling much better after IV fluids and does not have any complaints. She unfortunately hurt her head with this fall and she does have small hematoma on the right side of her forehead but she currently denies any headache or vision changes. In the emergency department, found to have a blood cell count 24,000 with predominance of neutrophils. Stable hemoglobin. Creatinine of 1.7 beats BUNs of 67 normal anion gap serum bicarbonate of 37 and sodium [birth year]1930 and chlorid e of 89. Patient denied any previous history of renal insufficiency. Imaging: CT of the head without any acute intracranial changes. She does have small right frontal scalp hematoma. CT of the cervical and thoracic spine showing T5 vertebral body collapse chronically in nature. Questionable artifact versus subtle nondisplaced fracture and C7 vertebral body which could be acute or chronic clinical correlation advised. Other changes as per report Interval history: 02/16 patient was examined at the bedside. She is confused. Only alert and oriented to herself. She denies any chest pain or shortness of breath 02/17 patient was seen and examined at the bedside. She is awake and oriented 2. She is complaining of heartburn 02/18 patient was examined at the bedside. Patient was complaining of chest pain overnight with A. fib with RVR heart rate 180s 02/19 patient was seen and examined at the bedside.. She denies any chest pain or shortness of breath. Heart rate controlled Physical examination: Awake alert oriented 2 Head and neck: Small right sided frontal scalp hematoma no skull depressions or excoriations Anicteric sclera and oropharyngeal mucosa moist without any lesions no neck masses no JVD Neck supple without any point tenderness without rigidity Lungs: Clear to auscultation Cardiovascular: Regular rhythm and rate S1 posterior Abdomen: Bowel sounds present throughout, abdomen is soft nontender nondistended no organomegaly no masses, no suprapubic tenderness no flank tenderness right upper quadrant tenderness Extremities: No peripheral edema no cyanosis warm well perfused DP pulses present bilateral Musculoskeletal: No deformities Neurological: Awake alert oriented 3, cranial nerves II through XII intact, motor strength is 5 out of 5 in upper and lower extremities proximally and distally, no ankle clonus , nontender reflexes laxer bilateral, sensitivity to light touch in upper limits immitis preserved no asterixis [id number] intact Assessment and plan: #Fall and presyncope Patient presents with hypotension, component of vasovagal reaction, orthostasis in the setting of diuresis dehydration multiple blood pressure medications Improved with IV fluid Hold blood pressure medications, hold Lasix #Anteriorsuperior nondisplaced fracture, C7 vertebral body; T5 vertebral compression fracture, chronic -per Orthopedic Surgery no need for urgent surgical intervention -Patient wearing cervical collar #New-onset A. fib with RVR -There is control. Cardiology started the patient on a mild tach and Eliquis 2.5 twice daily -Cardiology consulted #SIRS, leukocytosis rule out sepsis Reactive due to use of systemic steroids and dehydration Septic workup, blood cultures came back negative UA with cultures Chest x-ray without acute findings Per infectious disease CT of abdominal pelvis with oral contrast did show extensive diverticulosis and possible colitis likely the source of elevated white count 3- patient initial clinical improvement in the white count is normalized to continue with the Unasyn finishing therapy with oral Augmentin #Elevated troponin No active chest pain No acute EKG findings The patient asymptomatic cardiology consultation Echocardiogram echo with mild left ventricular concentric hypertrophy with preserved LV function. Mitral annular calcification and thickened aortic valve leaflets. Mild tricuspid regurgitation. No pericardial effusion Keep on telemetry #Acute kidney injury Suspected to be prerenal Continue IV fluids UA: No significant proteinuria no RBCs or WBCs Ultrasound of the kidneys, bladder scan Nephrology consultation #Chronic hypoxic respiratory failure COPD without acute exacerbation, on home oxygen 34 liters Continue oxygen, continue nebulizers #Elevated liver enzymes Normal bilirubin and alkaline phosphatase Trend liver enzymes, may need ultrasound #Closed head trauma Due to fall CT of the head and cervical spine obtained Consider or to/neurosurgery consult #Overcorrected Hypothyroidism -Low TSH -Decrease levothyroxine from 50 g daily to 37.5 g -Patient will need repeat TSH in 6-8 weeks after discharge DVT prophylaxis SCDs Patient will need more than 2 minutes hospital stay Objective - Vital Signs Vital signs: Vital Signs Temp 97.3 F L 02/19/22 08:00 Pulse 76 02/19/22 12:00 Resp 16 02/19/22 08:00 BP 114/71 02/19/22 12:00 Pulse Ox 100 02/19/22 12:00 Intake & Output 02/18/22 02/19/22 02/19/22 18:59 06:59 18:59 Intake Total 125 356.936 0 Output Total 1 1 Balance 124 356.936 -1 Intake: Intake, IV Titration 125 116.936 Amount Diltiazem 125 mg In 125 Sodium Chloride 0.9% 100 ml @ 10 MG/HR 10 mls/hr IV .[id number] KARINA Rx#: [id number] Heparin Sod,Pork in 0.45% 116.936 NaCl 25,000 unit In 0.45 % NaCl 1 250ml.bag @ 12 UNITS/KG/HR 7.087 mls/hr IV .Q24H KARINA Rx#: [id number] Oral 240 0 Output: Urine 1 Stool 1 Other: # Voids 1 1 # Bowel Movements 1 - Labs CBC & Chem 7: 02/19/22 02:34 02/19/22 02:34 Labs: Abnormal Lab Results - Last 24 Hours (Table) 02/18/22 02/18/22 02/18/22 Range/Units 16:06 18:10 18:10 RBC (3.80-5.40) m/uL Hgb (11.4-16.0) gm/dL Hct (34.0-46.0) % Plt Count (150-450) k/uL Neutrophils # (1.3-7.7) k/uL Lymphocytes # (1.0-4.8) k/uL APTT 108.9 H* (22.0-30.0) sec Sodium (137-145) mmol/L Potassium (3.5-5.1) mmol/L Carbon Dioxide (22-30) mmol/L Calcium (8.4-10.2) mg/dL Magnesium (1.6-2.3) mg/dL ALT (4-34) U/L Troponin I 0.091 H* 0.098 H* (0.000-0.034) ng/mL Total Protein (6.3-8.2) g/dL Albumin (3.5-5.0) g/dL 02/19/22 02/19/22 02/19/22 Range/Units 02:34 02:34 02:34 RBC 3.12 L (3.80-5.40) m/uL Hgb 10.3 L (11.4-16.0) gm/dL Hct 29.5 L (34.0-46.0) % Plt Count 109 L (150-450) k/uL Neutrophils # 8.8 H (1.3-7.7) k/uL Lymphocytes # 0.7 L (1.0-4.8) k/uL APTT 62.2 H (22.0-30.0) sec Sodium 135 L (137-145) mmol/L Potassium 2.9 L (3.5-5.1) mmol/L Carbon Dioxide 34 H (22-30) mmol/L Calcium 7.9 L (8.4-10.2) mg/dL Magnesium 1.4 L (1.6-2.3) mg/dL ALT 48 H (4-34) U/L Troponin I (0.000-0.034) ng/mL Total Protein 4.6 L (6.3-8.2) g/dL Albumin 2.4 L (3.5-5.0) g/dL Microbiology - Last 24 Hours (Table) 02/15/22 09:51 Blood Culture - Preliminary Blood No Growth after 96 hours 02/15/22 09:35 Blood Culture - Preliminary Blood No Growth after 96 hours
[2022-02-19 21:13] LABS: Magnesium 2.4 mg/dL (1.6-2.3); Potassium 3.9 mmol/L (3.5-5.1)
--- NOTE | 2022-02-19 21:17 | P.PN ---
Subjective Progress Note Date: 02/19/22 Principal diagnosis: Leukocytosis possible diverticulitis Patient is 81 year old female presenting to the hospital with a fall this patient also complaining of some abdominal bloating and discomfort did have elevated white count for the patient did have a CT of abdominal pelvis evidence of significant diverticulosis and possible colitis. On today's evaluation that is 02/19/2022, the patient denies any fever or any chills, the patient is breathing comfortably on nasal cannula oxygen, the patient denies any chest pain shortness of breath or cough no abdominal pain has improved no nausea vomiting or diarrhea Objective - Vital Signs Vital signs: Vital Signs Temp 97.3 F L 02/19/22 08:00 Pulse 76 02/19/22 14:00 Resp 16 02/19/22 14:00 BP 114/71 02/19/22 12:00 Pulse Ox 100 02/19/22 12:00 Intake & Output 02/18/22 02/19/22 02/19/22 18:59 06:59 18:59 Intake Total 125 356.936 30 Output Total 1 1 Balance 124 356.936 29 Intake: Intake, IV Titration 125 116.936 Amount Diltiazem 125 mg In 125 Sodium Chloride 0.9% 100 ml @ 10 MG/HR 10 mls/hr IV .[id number] KARINA Rx#: [id number] Heparin Sod,Pork in 0.45% 116.936 NaCl 25,000 unit In 0.45 % NaCl 1 250ml.bag @ 12 UNITS/KG/HR 7.087 mls/hr IV .Q24H KARINA Rx#: [id number] Oral 240 30 Output: Urine 1 Stool 1 Other: # Voids 1 1 # Bowel Movements 1 - Exam GENERAL DESCRIPTION: An elderly female lying in bed in no distress RESPIRATORY SYSTEM: Unlabored breathing , decreased breath sounds at bases HEART: S1 S2 regular rate and rhythm , ABDOMEN: Soft , no tenderness EXTREMITIES: No edema feet - Labs CBC & Chem 7: 02/19/22 02:34 02/19/22 20:36 Labs: Abnormal Lab Results - Last 24 Hours (Table) 02/18/22 02/18/22 02/18/22 Range/Units 16:06 18:10 18:10 RBC (3.80-5.40) m/uL Hgb (11.4-16.0) gm/dL Hct (34.0-46.0) % Plt Count (150-450) k/uL Neutrophils # (1.3-7.7) k/uL Lymphocytes # (1.0-4.8) k/uL APTT 108.9 H* (22.0-30.0) sec Sodium (137-145) mmol/L Potassium (3.5-5.1) mmol/L Carbon Dioxide (22-30) mmol/L Calcium (8.4-10.2) mg/dL Magnesium (1.6-2.3) mg/dL ALT (4-34) U/L Troponin I 0.091 H* 0.098 H* (0.000-0.034) ng/mL Total Protein (6.3-8.2) g/dL Albumin (3.5-5.0) g/dL 02/19/22 02/19/22 02/19/22 Range/Units 02:34 02:34 02:34 RBC 3.12 L (3.80-5.40) m/uL Hgb 10.3 L (11.4-16.0) gm/dL Hct 29.5 L (34.0-46.0) % Plt Count 109 L (150-450) k/uL Neutrophils # 8.8 H (1.3-7.7) k/uL Lymphocytes # 0.7 L (1.0-4.8) k/uL APTT 62.2 H (22.0-30.0) sec Sodium 135 L (137-145) mmol/L Potassium 2.9 L (3.5-5.1) mmol/L Carbon Dioxide 34 H (22-30) mmol/L Calcium 7.9 L (8.4-10.2) mg/dL Magnesium 1.4 L (1.6-2.3) mg/dL ALT 48 H (4-34) U/L Troponin I (0.000-0.034) ng/mL Total Protein 4.6 L (6.3-8.2) g/dL Albumin 2.4 L (3.5-5.0) g/dL Microbiology - Last 24 Hours (Table) 02/15/22 09:51 Blood Culture - Preliminary Blood No Growth after 96 hours 02/15/22 09:35 Blood Culture - Preliminary Blood No Growth after 96 hours Assessment and Plan (1) Leukocytosis Current Visit: Yes Status: Acute Code(s): D72.829 - ELEVATED WHITE BLOOD CELL COUNT, UNSPECIFIED SNOMED Code(s): 184375164 Plan: 1patient presented to hospital with a syncopal episode this patient did have a fall in the bathroom prior to that the patient was complaining of abdominal bloating and gas patient did have mild distention and slightly tender likely concerning for abdominal source and will need to cover for the enteric gram- negative katharine 2- CT of abdominal pelvis with oral contrast did show extensive diverticulosis and possible colitis likely the source of elevated white count 3- patient did have overall clinical improvement and will be continued with IV Unasyn while inpatient finishing therapy with oral Augmentin Time with Patient: Less than 30
[2022-02-19] MEDS: MONTELUKAST 10 MG TAB PO SCH (21:23)
[2022-02-19] MEDS: LATANOPROST 0.005% OPHTH DROPS 2.5 ML BTL BOTH EYES SCH (21:25)
[2022-02-19] MEDS: FLUTICASONE 50MCG/SPRAY NASAL 16GM EA NOSTRIL SCH (21:25)
[2022-02-20] MEDS: AMPICILLIN-SULBACTAM 3 GM in SODIUM CHLORIDE 0.9% 100 ML IVPB SCH ×4 (00:08→23:41)
[2022-02-20] MEDS: PANTOPRAZOLE 40 MG TABLET PO SCH (07:31)
[2022-02-20] MEDS: MIDODRINE 5 MG TAB PO SCH ×2 (07:32→17:47)
[2022-02-20] MEDS: DRONEDARONE 400 MG TAB PO SCH ×2 (07:33→17:47)
[2022-02-20] MEDS: BUDESONIDE 0.5 MG/2 ML NEBU INHALATION SCH ×2 (08:17→20:11)
[2022-02-20 09:14] LABS: Basophils % (A) 0 %; Eosinophils # (A) 0.1 k/uL (0-0.7); Eosinophils % (A) 1 %; HCT 31.5 % (34.0-46.0); HGB 10.6 gm/dL (11.4-16.0); Lymphocytes # (A) 0.8 k/uL (1.0-4.8); Lymphocytes % (A) 10 %; MCHC 33.6 g/dL (31.0-37.0); MCV 98.1 fL (80.0-100.0); Mean Platelet Volume 7.9; Monocytes # (A) 0.5 k/uL (0-1.0); Monocytes % (A) 6 %; Neutrophils # (A) 6.5 k/uL (1.3-7.7); Neutrophils % (A) 81 %; Platelet Count 106 k/uL (150-450); RBC 3.21 m/uL (3.80-5.40); RDW 13.7 % (11.5-15.5)
[2022-02-20 09:18] LABS: ALT 45 U/L (4-34); AST 34 U/L (14-36); African American GFR (CKD) >90 (>60 ml/min/1.73 sqM); Albumin 2.5 g/dL (3.5-5.0); Alkaline Phosphatase 73 U/L (38-126); Anion Gap 3 mmol/L; Blood Urea Nitrogen 11 mg/dL (7-17); Calcium 7.9 mg/dL (8.4-10.2); Carbon Dioxide 33 mmol/L (22-30); Chloride 101 mmol/L (98-107); Glucose 100 mg/dL (74-99); Non-African American GFR(CKD) 88 (>60 ml/min/1.73 sqM); Potassium 3.8 mmol/L (3.5-5.1); Sodium 137 mmol/L (137-145); Total Bilirubin 0.6 mg/dL (0.2-1.3); Total Protein 4.9 g/dL (6.3-8.2)
[2022-02-20] MEDS: MAG HYDROX/AL HYDROX/SIMETH 30 ML, diphenhydrAMINE ELIXIR 75 MG, LIDOCAINE VISCOUS 2% 3... PO SCH ×12 (09:56→23:40)
[2022-02-20] MEDS: ALPRAZolam 0.25 MG TAB PO PRN ×2 (10:04→20:06)
[2022-02-20] MEDS: APIXABAN 2.5 MG TABLET PO SCH (10:04)
[2022-02-20] MEDS: CLOPIDOGREL 75 MG TAB PO SCH (10:04)
[2022-02-20] MEDS: FLUTICASONE 50MCG/SPRAY NASAL 16GM EA NOSTRIL SCH (20:06)
[2022-02-20] MEDS: MONTELUKAST 10 MG TAB PO SCH (20:06)
[2022-02-20] MEDS: LATANOPROST 0.005% OPHTH DROPS 2.5 ML BTL BOTH EYES SCH (20:06)
[2022-02-20] MEDS: IPRATROPIUM-ALBUTEROL 3 ML NEB INHALATION PRN (20:11)
--- NOTE | 2022-02-20 20:38 | XR ---
EXAMINATION TYPE: XR chest 1V portable DATE OF EXAM: 02/20/2022 COMPARISON: NONE HISTORY: Pain TECHNIQUE: Single view FINDINGS: Heart and mediastinum appear normal. Lungs are clear of infiltrate. There is mild flattenin g of the diaphragm. There is minimal pleural reaction at the lung bases. There are chest leads. No he art failure. IMPRESSION: There is some new mild pleural reaction or fluid at the lung bases compared to old exam.
--- NOTE | 2022-02-20 21:36 | P.PN ---
Subjective Progress Note Date: 02/20/22 Principal diagnosis: Leukocytosis possible diverticulitis Patient is 81 year old female presenting to the hospital with a fall this patient also complaining of some abdominal bloating and discomfort did have elevated white count for the patient did have a CT of abdominal pelvis evidence of significant diverticulosis and possible colitis. On today's evaluation that is 02/20/2022, the patient remains to be febrile, the patient is breathing comfortably on nasal cannula oxygen, the patient denies any chest pain shortness of breath or cough no abdominal pain has improved no nausea vomiting or diarrhea Objective - Vital Signs Vital signs: Vital Signs Temp 97.8 F 02/20/22 08:00 Pulse 77 02/20/22 08:00 Resp 18 02/20/22 08:00 BP 109/50 02/20/22 08:00 Pulse Ox 98 02/20/22 08:00 Intake & Output 02/19/22 02/20/22 02/20/22 18:59 06:59 18:59 Intake Total 30 Output Total 101 102 Balance -71 -102 Intake: Oral 30 Output: Urine 100 100 Stool 1 2 Other: # Voids 1 - Exam GENERAL DESCRIPTION: An elderly female lying in bed in no distress RESPIRATORY SYSTEM: Unlabored breathing , decreased breath sounds at bases HEART: S1 S2 regular rate and rhythm , ABDOMEN: Soft , no tenderness EXTREMITIES: No edema feet - Labs CBC & Chem 7: 02/20/22 08:35 02/20/22 08:35 Labs: Abnormal Lab Results - Last 24 Hours (Table) 02/19/22 02/20/22 02/20/22 Range/Units 20:36 08:35 08:35 RBC 3.21 L (3.80-5.40) m/uL Hgb 10.6 L (11.4-16.0) gm/dL Hct 31.5 L (34.0-46.0) % Plt Count 106 L (150-450) k/uL Lymphocytes # 0.8 L (1.0-4.8) k/uL Carbon Dioxide 33 H (22-30) mmol/L Glucose 100 H (74-99) mg/dL Calcium 7.9 L (8.4-10.2) mg/dL Magnesium 2.4 H (1.6-2.3) mg/dL ALT 45 H (4-34) U/L Total Protein 4.9 L (6.3-8.2) g/dL Albumin 2.5 L (3.5-5.0) g/dL Microbiology - Last 24 Hours (Table) 02/15/22 09:51 Blood Culture - Preliminary Blood No Growth after 120 hours 02/15/22 09:35 Blood Culture - Preliminary Blood No Growth after 120 hours Assessment and Plan (1) Leukocytosis Current Visit: Yes Status: Acute Code(s): D72.829 - ELEVATED WHITE BLOOD CELL COUNT, UNSPECIFIED SNOMED Code(s): 516602013 Plan: 1patient presented to hospital with a syncopal episode this patient did have a fall in the bathroom prior to that the patient was complaining of abdominal bloating and gas patient did have mild distention and slightly tender likely concerning for abdominal source and will need to cover for the enteric gram- negative katharine 2- CT of abdominal pelvis with oral contrast did show extensive diverticulosis and possible colitis likely the source of elevated white count 3- patient is slowly clinically improving and the patient is currently being treated with IV Unasyn while inpatient patient will be able to finish therapy with oral Augmentin
[2022-02-21] MEDS: AMPICILLIN-SULBACTAM 3 GM in SODIUM CHLORIDE 0.9% 100 ML IVPB SCH ×4 (05:05→21:58)
[2022-02-21 08:58] LABS: Basophils % (A) 0 %; Eosinophils # (A) 0.1 k/uL (0-0.7); Eosinophils % (A) 1 %; HGB 9.7 gm/dL (11.4-16.0); Lymphocytes # (A) 0.8 k/uL (1.0-4.8); Lymphocytes % (A) 11 %; MCH 32.4 pg (25.0-35.0); MCHC 33.4 g/dL (31.0-37.0); MCV 96.9 fL (80.0-100.0); Mean Platelet Volume 8.1; Monocytes # (A) 0.4 k/uL (0-1.0); Monocytes % (A) 5 %; Neutrophils # (A) 5.5 k/uL (1.3-7.7); Neutrophils % (A) 80 %; Platelet Count 103 k/uL (150-450); RDW 13.8 % (11.5-15.5); WBC 6.9 k/uL (3.8-10.6)
[2022-02-21 09:16] LABS: ALT 41 U/L (4-34); AST 29 U/L (14-36); African American GFR (CKD) >90 (>60 ml/min/1.73 sqM); Albumin 2.4 g/dL (3.5-5.0); Alkaline Phosphatase 68 U/L (38-126); Anion Gap 2 mmol/L; Blood Urea Nitrogen 9 mg/dL (7-17); Calcium 7.9 mg/dL (8.4-10.2); Carbon Dioxide 34 mmol/L (22-30); Chloride 100 mmol/L (98-107); Glucose 74 mg/dL (74-99); Magnesium 1.7 mg/dL (1.6-2.3); Non-African American GFR(CKD) 88 (>60 ml/min/1.73 sqM); Potassium 3.5 mmol/L (3.5-5.1); Sodium 136 mmol/L (137-145); Total Bilirubin 0.6 mg/dL (0.2-1.3); Total Protein 4.6 g/dL (6.3-8.2)
[2022-02-21] MEDS: DRONEDARONE 400 MG TAB PO SCH ×2 (11:34→16:48)
[2022-02-21] MEDS: LEVOTHYROXINE 75 MCG TAB PO SCH (11:34)
[2022-02-21] MEDS: MIDODRINE 5 MG TAB PO SCH ×2 (11:34→16:49)
[2022-02-21] MEDS: PANTOPRAZOLE 40 MG TABLET PO SCH (11:35)
[2022-02-21] MEDS: MAG HYDROX/AL HYDROX/SIMETH 30 ML, diphenhydrAMINE ELIXIR 75 MG, LIDOCAINE VISCOUS 2% 3... PO SCH ×9 (11:35→21:58)
[2022-02-21] MEDS: CLOPIDOGREL 75 MG TAB PO SCH (11:35)
--- NOTE | 2022-02-21 13:05 | P.DS ---
Providers Date of admission: 02/15/22 09:25 Expected date of discharge: 02/21/22 Attending physician: Dwight Gilman MD Consults: 02/15/22 11:28 Consult Physician Routine Consulting Provider: Danyelle Smith Consult Reason/Comments: Sepsis Do you want consulting provider notified?: Yes Consult Physician Routine Consulting Provider: Selena Buenrostro Consult Reason/Comments: Rhys Do you want consulting provider notified?: Yes 02/15/22 18:37 Consult Physician Routine Consulting Provider: Valdez Negrete Consult Reason/Comments: Potential C7 fx Do you want consulting provider notified?: Yes 02/18/22 12:39 Consult Physician Stat Consulting Provider: Suhail Arora Consult Reason/Comments: afib rvr Do you want consulting provider notified?: Already Contacted 02/18/22 15:52 Consult Physician Routine Consulting Provider: Darcy Ravi Consult Reason/Comments: A. fib with RVR Do you want consulting provider notified?: Yes Primary care physician: Francisco De Oliveira MD Hospital Course: Chief Complaint: Loss of consciousness This is a very pleasant 81-year-old female who was brought to [facility] Department by EMS for evaluation of syncope. Patient has history of COPD on home oxygen, hypertension, hypothyroidism. Home medications include Norvasc, lisinopril, Cardizem, Plavix, inhale corticosteroids, dilators and levothyroxine. Patient states that about a week ago she was admitted at [facility] in [place] for respiratory issues, COPD exacerbation. About 3 days prior to this admission she was discharged to nursing home facility on Lasix predn isone, and antibiotics. Prior to that she would typically not take Lasix. Patient states that she was in usual state of health yesterday until in the evening she had a fish sandwich. After that overnight she started experiencing some cramping in the lower part of her abdomen. She did not have any diarrhea. She denies any fever or chills or any respiratory complaints. No dysuria or foul-smelling urine or hematuria. This morning she went to the bathroom and experienced nausea and was retching, no vomiting when she started feeling lightheaded with hot flashes and she collapsed and blacked out. Since she's been residing in a nursing home facility, EMS was called and she was transferred to ER. En route, EMS measure her systolic blood pressure 7080s. She was given bolus of IV fluids which led to quick improvement in her blood pressure. Patient stated that she did not lose consciousness completely, just feeling very lightheaded. She was not having any confusion. She did not have any involuntary movement of bowels or incontinence of urine. No tongue biting no seizure-like activity described. She denies any headache vision changes scintillations chest pain or palpitations before and after the event. During my interview patient stated that she is currently feeling much better after IV fluids and does not have any complaints. She unfortunately hurt her head with this fall and she does have small hematoma on the right side of her forehead but she currently denies any headache or vision changes. In the emergency department, found to have a blood cell count 24,000 with predominance of neutrophils. Stable hemoglobin. Creatinine of 1.7 beats BUNs of 67 normal anion gap serum bicarbonate of 37 and sodium 10/30/1930 and chloride of 89. Patient denied any previous history of renal insufficiency. Imaging: CT of the head without any acute intracranial changes. She does have small right frontal scalp hematoma. CT of the cervical and thoracic spine showing T5 vertebral body collapse chronically in nature. Questionable artifact versus subtle nondisplaced fracture and C7 vertebral body which could be acute or chronic clinical correlation advised. Other changes as per report Interval history: 02/16 patient was examined at the bedside. She is confused. Only alert and oriented to herself. She denies any chest pain or shortness of breath 02/17 patient was seen and examined at the bedside. She is awake and oriented 2. She is complaining of heartburn 02/18 patient was examined at the bedside. Patient was complaining of chest pain overnight with A. fib with RVR heart rate 180s 02/19 patient was seen and examined at the bedside.. She denies any chest pain or shortness of breath. Heart rate controlled Physical examination: Awake alert oriented 2 Head and neck: Small right sided frontal scalp hematoma no skull depressions or excoriations Anicteric sclera and oropharyngeal mucosa moist without any lesions no neck masses no JVD Neck supple without any point tenderness without rigidity Lungs: Clear to auscultation Cardiovascular: Regular rhythm and rate S1 posterior Abdomen: Bowel sounds present throughout, abdomen is soft nontender nondistended no organomegaly no masses, no suprapubic tenderness no flank tenderness right upper quadrant tenderness Extremities: No peripheral edema no cyanosis warm well perfused DP pulses present bilateral Musculoskeletal: No deformities Neurological: Awake alert oriented 3, cranial nerves II through XII intact, motor strength is 5 out of 5 in upper and lower extremities proximally and distally, no ankle clonus , nontender reflexes laxer bilateral, sensitivity to light touch in upper limits immitis preserved no asterixis [id number] intact Assessment and plan: #Fall and presyncope Patient presents with hypotension, component of vasovagal reaction, orthostasis in the setting of diuresis dehydration multiple blood pressure medications Improved with IV fluid Hold blood pressure medications, hold Lasix #Anteriorsuperior nondisplaced fracture, C7 vertebral body; T5 vertebral compression fracture, chronic -per Orthopedic Surgery no need for urgent surgical intervention -Patient wearing cervical collar #New-onset A. fib with RVR -Rate controlled. -Cardiology started the patient on Multaq and Eliquis 2.5 twice daily -Cardiology consulted #SIRS, leukocytosis rule out sepsis Reactive due to use of systemic steroids and dehydration Septic workup, blood cultures came back negative UA with cultures Chest x-ray without acute findings Per infectious disease CT of abdominal pelvis with oral contrast did show extensive diverticulosis and possible colitis likely the source of elevated white count 3- patient initial clinical improvement in the white count is normalized to continue with the Unasyn finishing therapy with oral Augmentin #Elevated troponin No active chest pain No acute EKG findings The patient asymptomatic cardiology consultation Echocardiogram echo with mild left ventricular concentric hypertrophy with preserved LV function. Mitral annular calcification and thickened aortic valve leaflets. Mild tricuspid regurgitation. No pericardial effusion Keep on telemetry #Acute kidney injury Suspected to be prerenal Status post IV fluids UA: No significant proteinuria no RBCs or WBCs Ultrasound of the kidneys, bladder scan without obstruction Nephrology consultation #Chronic hypoxic respiratory failure COPD without acute exacerbation, on home oxygen 34 liters Continue oxygen, continue nebulizers #Elevated liver enzymes Normal bilirubin and alkaline phosphatase Trend liver enzymes, may need ultrasound #Closed head trauma Due to fall CT of the head and cervical spine obtained Consider or to/neurosurgery consult #Overcorrected Hypothyroidism -Low TSH -Decrease levothyroxine from 50 g daily to 37.5 g -Patient will need repeat TSH in 6-8 weeks after discharge Patient Condition at Discharge: Fair Plan - Discharge Summary Discharge Rx Participant: No New Discharge Prescriptions: New Sodium Chloride 0.65% Nasal [Deep Sea (Saline)] 2 spray INTRANASAL QID PRN ml PRN Reason: Dry Nasal Passages Ipratropium-Albuterol Nebulize [Duoneb 0.5 mg-3 mg/3 ml Soln] 3 ml INHALATION RT-QID PRN ml PRN Reason: Shortness Of Breath Or Wheezing Dronedarone [Multaq] 400 mg PO AC-BID tab Midodrine [ProAmatine] 5 mg PO AC-BID tab Apixaban [Eliquis] 2.5 mg PO BID 30 Days #60 tab Amoxic-Pot Clav 875-125Mg [Augmentin 875-125] 1 tab PO Q12HR 7 Days #14 tab Levothyroxine Sodium [Synthroid] 37.5 mcg PO DAILY@0630 tab Continue Montelukast [Singulair] 10 mg PO HS Fluticasone Nasal [place] [Flonase Nasal [place]] 1 spr EA NOSTRIL DAILY Clopidogrel Bisulfate [Plavix] 75 mg PO DAILY ALPRAZolam [Xanax] 0.25 mg PO Q8H PRN 2 Days #8 tab PRN Reason: Anxiety Albuterol Sulfate [Ventolin HFA] 2 puff INHALATION RT-DAILY Tiotropium Steele [Spiriva] 1 cap INHALATION RT-DAILY Pantoprazole [Protonix] 40 mg PO DAILY Latanoprost [Xalatan 0.005%] 1 drop BOTH EYES HS Formoterol Fumarate Capsule 12mcg Inhaler 1 cap INHALATION RT-BID Docusate [Colace] 100 mg PO Q12H PRN PRN Reason: Diarrhea Calcium Carbonate [Tums] 500 mg PO Q4H PRN PRN Reason: Heartburn Fluticasone/Vilanterol [Breo Ellipta 100-25 Mcg Inhaler] 1 puff INHALATION RT-DAILY Benzonatate [Tessalon Perles] 200 mg PO Q8H PRN PRN Reason: Cough Atorvastatin [Lipitor] 40 mg PO HS Acetaminophen Tab [Tylenol] 650 mg PO Q4H PRN MDD 3000mg PRN Reason: Pain Discontinued amLODIPine [Norvasc] 5 mg PO DAILY Budesonide [Pulmicort] 0.5 mg INHALATION RT-Q12H Naproxen 500 mg PO Q12H PRN PRN Reason: Pain guaiFENesin [guaiFENesin Oral Solution] 200 mg PO HS PRN PRN Reason: Cough Furosemide [Lasix] 20 mg PO BID Doxycycline Monohydrate [Monodox] 100 mg PO BID Diltiazem Cd [Cardizem CD] 180 mg PO DAILY Nystatin [Nystatin Oral Susp] 500,000 unit PO QID methylPREDNISolone [Medrol Dose Pack] See Taper PO DIRECTED Lisinopril [Prinivil] 10 mg PO DAILY Levothyroxine Sodium [Levoxyl] 50 mcg PO DAILY Discharge Medication List Acetaminophen Tab [Tylenol] 650 mg PO Q4H PRN MDD 3000mg 02/15/22 [History] Albuterol Sulfate [Ventolin HFA] 2 puff INHALATION RT-DAILY 02/15/22 [History] Atorvastatin [Lipitor] 40 mg PO HS 02/15/22 [History] Benzonatate [Tessalon Perles] 200 mg PO Q8H PRN 02/15/22 [History] Calcium Carbonate [Tums] 500 mg PO Q4H PRN 02/15/22 [History] Clopidogrel Bisulfate [Plavix] 75 mg PO DAILY 02/15/22 [History] Docusate [Colace] 100 mg PO Q12H PRN 02/15/22 [History] Fluticasone Nasal [place] [Flonase Nasal [place]] 1 spr EA NOSTRIL DAILY 02/15/22 [History] Fluticasone/Vilanterol [Breo Ellipta 100-25 Mcg Inhaler] 1 puff INHALATION RT- DAILY 02/15/22 [History] Formoterol Fumarate Capsule 12mcg Inhaler 1 cap INHALATION RT-BID 02/15/22 [History] Latanoprost [Xalatan 0.005%] 1 drop BOTH EYES HS 02/15/22 [History] Montelukast [Singulair] 10 mg PO HS 02/15/22 [History] Pantoprazole [Protonix] 40 mg PO DAILY 02/15/22 [History] Tiotropium Steele [Spiriva] 1 cap INHALATION RT-DAILY 02/15/22 [History] ALPRAZolam [Xanax] 0.25 mg PO Q8H PRN 2 Days #8 tab 02/21/22 [Rx] Amoxic-Pot Clav 875-125Mg [Augmentin 875-125] 1 tab PO Q12HR 7 Days #14 tab 02/21/22 [Rx] Apixaban [Eliquis] 2.5 mg PO BID 30 Days #60 tab 02/21/22 [Rx] Dronedarone [Multaq] 400 mg PO AC-BID tab 02/21/22 [Rx] Ipratropium-Albuterol Nebulize [Duoneb 0.5 mg-3 mg/3 ml Soln] 3 ml INHALATION RT-QID PRN ml 02/21/22 [Rx] Levothyroxine Sodium [Synthroid] 37.5 mcg PO DAILY@0630 tab 02/21/22 [Rx] Midodrine [ProAmatine] 5 mg PO AC-BID tab 02/21/22 [Rx] Sodium Chloride 0.65% Nasal [Deep Sea (Saline)] 2 spray INTRANASAL QID PRN ml 02/21/22 [Rx] Follow up Appointment(s)/Referral(s): Francisco De Oliveira MD [Primary Care Provider] - 1-2 days Valdez Negrete DO [Doctor of Osteopathic Medicine] - 2 Weeks Discharge Disposition: TRANSFER TO SNF/ECF
--- NOTE | 2022-02-21 16:17 | P.PN ---
Subjective History of Present Illness Chief Complaint: Loss of consciousness This is a very pleasant 81-year-old female who was brought to [facility] Department by EMS for evaluation of syncope. Patient has history of COPD on home oxygen, hypertension, hypothyroidism. Home medications include Norvasc, lisinopril, Cardizem, Plavix, inhale corticoster oids, dilators and levothyroxine. Patient states that about a week ago she was admitted at [facility] in [place] for respiratory issues, COPD exacerbation. About 3 days prior to this admission she was discharged to group home facility on Lasix prednisone, and antibiotics. Prior to that she would typically not take Lasix. Patient states that she was in usual state of health yesterday until in the evening she had a fish sandwich. After that overnight she started experiencing some cramping in the lower part of her abdomen. She did not have any diarrhea. She denies any fever or chills or any respiratory complaints. No dysuria or foul-smelling urine or hematuria. This morning she went to the bathroom and experienced nausea and was retching, no vomiting when she started feeling lightheaded with hot flashes and she collapsed and blacked out. Since she's been residing in a group home facility, EMS was called and she was transferred to ER. En route, EMS measure her systolic blood pressure 7080s. She was given bolus of IV fluids which led to quick improvement in her blood pressure. Patient stated that she did not lose consciousness completely, just feeling very lightheaded. She was not having any confusion. She did not have any involuntary movement of bowels or incontinence of urine. No tongue biting no seizure-like activity described. She denies any headache vision changes scintillations chest pain or palpitations before and after the event. During my interview patient stated that she is currently feeling much better after IV fluids and does not have any complaints. She unfortunately hurt her head with this fall and she does have small hematoma on the right side of her forehead but she currently denies any headache or vision changes. In the emergency department, found to have a blood cell count 24,000 with predominance of neutrophils. Stable hemoglobin. Creatinine of 1.7 beats BUNs of 67 normal anion gap serum bicarbonate of 37 and sodium 10/30/1930 and chloride of 89. Patient denied any previous history of renal insufficiency. Imaging: CT of the head without any acute intracranial changes. She does have small right frontal scalp hematoma. CT of the cervical and thoracic spine showing T5 vertebral body collapse chronically in nature. Questionable artifact versus subtle nondisplaced fracture and C7 vertebral body which could be acute or chronic clinical correlation advised. Other changes as per report Interval history: 02/21 patient was seen and examined at bedside. She denies any chest pain or shortness of breath. Patient was cleared for discharge by cardiology and infectious disease. Plan to discharge the patient to group home pending insurance authorization Physical examination: Awake alert oriented 2 Head and neck: Small right sided frontal scalp hematoma no skull depressions or excoriations Anicteric sclera and oropharyngeal mucosa moist without any lesions no neck masses no JVD Neck supple without any point tenderness without rigidity Lungs: Clear to auscultation Cardiovascular: Regular rhythm and rate S1 posterior Abdomen: Bowel sounds present throughout, abdomen is soft nontender nondistended no organomegaly no masses, no suprapubic tenderness no flank tenderness right upper quadrant tenderness Extremities: No peripheral edema no cyanosis warm well perfused DP pulses present bilateral Musculoskeletal: No deformities Neurological: Awake alert oriented 3, cranial nerves II through XII intact, motor strength is 5 out of 5 in upper and lower extremities proximally and distally, no ankle clonus , nontender reflexes laxer bilateral, sensitivity to light touch in upper limits immitis preserved no asterixis [id number] intact Assessment and plan: #Fall and presyncope Patient presents with hypotension, component of vasovagal reaction, orthostasis in the setting of diuresis dehydration multiple blood pressure medications Improved with IV fluid Holding blood pressure medications, holding Lasix #Anteriorsuperior nondisplaced fracture, C7 vertebral body; T5 vertebral compression fracture, chronic -per Orthopedic Surgery no need for urgent surgical intervention -Patient wearing cervical collar #New-onset A. fib with RVR -Rate is controlled -Cardiology started the patient on Multaq and Eliquis 2.5 twice daily -Cardiology consulted #SIRS, leukocytosis rule out sepsis Reactive due to use of systemic steroids and dehydration Septic workup, blood cultures came back negative UA with cultures Chest x-ray without acute findings Per infectious disease CT of abdominal pelvis with oral contrast did show extensive diverticulosis and possible colitis likely the source of elevated white count 3- patient initial clinical improvement in the white count is normalized to continue with the Unasyn finishing therapy with oral Augmentin #Elevated troponin No active chest pain No acute EKG findings The patient asymptomatic cardiology consultation Echocardiogram echo with mild left ventricular concentric hypertrophy with preserved LV function. Mitral annular calcification and thickened aortic valve leaflets. Mild tricuspid regurgitation. No pericardial effusion Keep on telemetry #Acute kidney injury Suspected to be prerenal Continue IV fluids UA: No significant proteinuria no RBCs or WBCs Ultrasound of the kidneys, bladder scan Nephrology consultation #Chronic hypoxic respiratory failure COPD without acute exacerbation, on home oxygen 34 liters Continue oxygen, continue nebulizers #Elevated liver enzymes Normal bilirubin and alkaline phosphatase Trend liver enzymes, may need ultrasound #Closed head trauma Due to fall CT of the head and cervical spine obtained Consider or to/neurosurgery consult #Overcorrected Hypothyroidism -Low TSH -Decrease levothyroxine from 50 g daily to 37.5 g -Patient will need repeat TSH in 6-8 weeks after discharge DVT prophylaxis SCDs Patient will need more than 2 minutes hospital stay Objective - Vital Signs Vital signs: Vital Signs Temp 97.9 F 02/21/22 00:00 Pulse 87 02/21/22 12:00 Resp 16 02/21/22 12:00 BP 101/56 02/21/22 12:00 Pulse Ox 99 02/21/22 12:00 Intake & Output 02/20/22 02/21/22 02/21/22 18:59 06:59 18:59 Intake Total 220 0 Balance 220 0 Intake: Intake, IV Titration 100 Amount Ampicillin-Sulbactam 3 gm 100 In Sodium Chloride 0.9% 100 ml @ 200 mls/hr IVPB Q8HR [facility] Rx#:[id number] Oral 120 0 Other: # Voids 1 0 # Bowel Movements 1 1 - Labs CBC & Chem 7: 02/21/22 08:15 02/21/22 06:36 Labs: Abnormal Lab Results - Last 24 Hours (Table) 02/21/22 02/21/22 Range/Units 06:36 08:15 RBC 3.00 L (3.80-5.40) m/uL Hgb 9.7 L (11.4-16.0) gm/dL Hct 29.0 L (34.0-46.0) % Plt Count 103 L (150-450) k/uL Lymphocytes # 0.8 L (1.0-4.8) k/uL Sodium 136 L (137-145) mmol/L Carbon Dioxide 34 H (22-30) mmol/L Calcium 7.9 L (8.4-10.2) mg/dL ALT 41 H (4-34) U/L Total Protein 4.6 L (6.3-8.2) g/dL Albumin 2.4 L (3.5-5.0) g/dL Microbiology - Last 24 Hours (Table) 02/15/22 09:51 Blood Culture - Final Blood No Growth after 144 hours 02/15/22 09:35 Blood Culture - Final Blood No Growth after 144 hours
[2022-02-21] MEDS: BUDESONIDE 0.5 MG/2 ML NEBU INHALATION SCH ×2 (17:09→21:45)
[2022-02-21] MEDS: APIXABAN 2.5 MG TABLET PO SCH (19:54)
[2022-02-21] MEDS: ALPRAZolam 0.25 MG TAB PO PRN (19:55)
[2022-02-21] MEDS: MONTELUKAST 10 MG TAB PO SCH (19:55)
[2022-02-21] MEDS: LATANOPROST 0.005% OPHTH DROPS 2.5 ML BTL BOTH EYES SCH (19:56)
[2022-02-21] MEDS: FLUTICASONE 50MCG/SPRAY NASAL 16GM EA NOSTRIL SCH (19:57)
--- NOTE | 2022-02-21 21:15 | P.PN ---
Subjective Progress Note Date: 02/21/22 Principal diagnosis: Leukocytosis possible diverticulitis Patient is 81 year old female presenting to the hospital with a fall this patient also complaining of some abdominal bloating and discomfort did have elevated white count for the patient did have a CT of abdominal pelvis evidence of significant diverticulosis and possible colitis. On today's evaluation that is 02/21/2022, the patient denies any fever or any chills, the patient is breathing comfortably on nasal cannula oxygen, the patient denies any chest pain shortness of breath or cough , the patient denies abdominal pain , no nausea vomiting or diarrhea Objective - Vital Signs Vital signs: Vital Signs Temp 97.9 F 02/21/22 00:00 Pulse 81 02/21/22 02:00 Resp 18 02/21/22 02:00 BP 93/56 02/21/22 00:00 Pulse Ox 96 02/21/22 00:00 Intake & Output 02/20/22 02/21/22 02/21/22 18:59 06:59 18:59 Intake Total 220 Balance 220 Intake: Intake, IV Titration 100 Amount Ampicillin-Sulbactam 3 gm 100 In Sodium Chloride 0.9% 100 ml @ 200 mls/hr IVPB Q8HR [facility] Rx#:[id number] Oral 120 Other: # Voids 1 0 # Bowel Movements 1 1 - Exam GENERAL DESCRIPTION: An elderly female lying in bed in no distress RESPIRATORY SYSTEM: Unlabored breathing , decreased breath sounds at bases HEART: S1 S2 regular rate and rhythm , ABDOMEN: Soft , no tenderness EXTREMITIES: No edema feet - Labs CBC & Chem 7: 02/21/22 08:15 02/21/22 06:36 Labs: Abnormal Lab Results - Last 24 Hours (Table) 02/21/22 02/21/22 Range/Units 06:36 08:15 RBC 3.00 L (3.80-5.40) m/uL Hgb 9.7 L (11.4-16.0) gm/dL Hct 29.0 L (34.0-46.0) % Plt Count 103 L (150-450) k/uL Lymphocytes # 0.8 L (1.0-4.8) k/uL Sodium 136 L (137-145) mmol/L Carbon Dioxide 34 H (22-30) mmol/L Calcium 7.9 L (8.4-10.2) mg/dL ALT 41 H (4-34) U/L Total Protein 4.6 L (6.3-8.2) g/dL Albumin 2.4 L (3.5-5.0) g/dL Microbiology - Last 24 Hours (Table) 02/15/22 09:51 Blood Culture - Final Blood No Growth after 144 hours 02/15/22 09:35 Blood Culture - Final Blood No Growth after 144 hours Assessment and Plan (1) Leukocytosis Current Visit: Yes Status: Acute Code(s): D72.829 - ELEVATED WHITE BLOOD CELL COUNT, UNSPECIFIED SNOMED Code(s): 356440733 Plan: 1patient presented to hospital with a syncopal episode this patient did have a fall in the bathroom prior to that the patient was complaining of abdominal bloating and gas patient did have mild distention and slightly tender likely concerning for abdominal source and will need to cover for the enteric gram- negative katharine 2- CT of abdominal pelvis with oral contrast did show extensive diverticulosis and possible colitis likely the source of elevated white count 3- patient had shown clinical improvement and the patient is currently being treated with IV Unasyn while inpatient patient will be able to finish therapy with oral Augmentin 875 mg twice a day for 7 days discussed with the admitting physician Time with Patient: Less than 30
[2022-02-21] MEDS: IPRATROPIUM-ALBUTEROL 3 ML NEB INHALATION PRN (21:45)
[2022-02-22] MEDS: AMPICILLIN-SULBACTAM 3 GM in SODIUM CHLORIDE 0.9% 100 ML IVPB SCH ×2 (05:11→08:22)
[2022-02-22 06:18] VITALS: TEMP 97.9
[2022-02-22] MEDS: LEVOTHYROXINE 75 MCG TAB PO SCH (06:37)
[2022-02-22] MEDS: MIDODRINE 5 MG TAB PO SCH (06:37)
[2022-02-22] MEDS: PANTOPRAZOLE 40 MG TABLET PO SCH (06:37)
[2022-02-22] MEDS: BUDESONIDE 0.5 MG/2 ML NEBU INHALATION SCH (07:41)
[2022-02-22] MEDS: DRONEDARONE 400 MG TAB PO SCH (08:22)
[2022-02-22] MEDS: CLOPIDOGREL 75 MG TAB PO SCH (08:22)
[2022-02-22] MEDS: APIXABAN 2.5 MG TABLET PO SCH (08:22)
[2022-02-22] MEDS: MAG HYDROX/AL HYDROX/SIMETH 30 ML, diphenhydrAMINE ELIXIR 75 MG, LIDOCAINE VISCOUS 2% 3... PO SCH ×3 (08:23)
[2022-02-22 08:44] LABS: Basophils % (A) 0 %; Eosinophils % (A) 1 %; HCT 30.5 % (34.0-46.0); HGB 10.2 gm/dL (11.4-16.0); Lymphocytes # (A) 0.7 k/uL (1.0-4.8); Lymphocytes % (A) 9 %; MCH 32.5 pg (25.0-35.0); MCHC 33.5 g/dL (31.0-37.0); MCV 96.9 fL (80.0-100.0); Mean Platelet Volume 8.1; Monocytes # (A) 0.4 k/uL (0-1.0); Monocytes % (A) 5 %; Neutrophils # (A) 5.9 k/uL (1.3-7.7); Neutrophils % (A) 82 %; Platelet Count 128 k/uL (150-450); RBC 3.15 m/uL (3.80-5.40); RDW 13.8 % (11.5-15.5); WBC 7.2 k/uL (3.8-10.6)
[2022-02-22 09:00] LABS: ALT 37 U/L (4-34); AST 32 U/L (14-36); African American GFR (CKD) >90 (>60 ml/min/1.73 sqM); Albumin 2.6 g/dL (3.5-5.0); Alkaline Phosphatase 74 U/L (38-126); Anion Gap 9 mmol/L; Blood Urea Nitrogen 9 mg/dL (7-17); Calcium 8.2 mg/dL (8.4-10.2); Carbon Dioxide 30 mmol/L (22-30); Chloride 99 mmol/L (98-107); Glucose 52 mg/dL (74-99); Magnesium 1.5 mg/dL (1.6-2.3); Non-African American GFR(CKD) 87 (>60 ml/min/1.73 sqM); Potassium 3.7 mmol/L (3.5-5.1); Sodium 138 mmol/L (137-145); Total Bilirubin 0.7 mg/dL (0.2-1.3); Total Protein 5.1 g/dL (6.3-8.2)
[2022-02-22 10:54] VITALS: RESP 16
[2022-02-22 12:07] VITALS: BP 123/58; PULSE 92
--- NOTE | 2022-02-22 13:24 | P.PN ---
Subjective Progress Note Date: 02/22/22 Principal diagnosis: syncope This is a very pleasant 81-year-old female who was brought to [facility] by EMS for evaluation of syncope. Patient has history of COPD on home oxygen, hypertension, hypothyroidism. Home medications include Norvasc, lisinopril, Cardizem, Plavix, inhale corticosteroids, dilators and levothyroxine. Patient states that about a week ago she was admitted at [facility] in [place] for respiratory issues, COPD exacerbation. About 3 days prior to this admission she was discharged to intermediate facility on Lasix prednisone, and antibiotics. Prior to that she would typically not take Lasix. Patient states that she was in usual state of health yesterday until in the evening she had a fish sandwich. After that overnight she started experiencing some cramping in the lower part of her abdomen. She did not have any diarrhea. She denies any fever or chills or any respiratory complaints. No dysuria or foul-smelling urine or hematuria. This morning she went to the bathroom and experienced nausea and was retching, no vomiting when she started feeling lightheaded with hot flashes and she collapsed and blacked out. Since she's been residing in a intermediate facility, EMS was called and she was transferred to ER. En route, EMS measure her systolic blood pressure 7080s. She was given bolus of IV fluids which led to quick improvement in her blood pressure. Patient stated that she did not lose consciousness completely, just feeling very lightheaded. She was not having any confusion. She did not have any involuntary movement of bowels or incontinence of urine. No tongue biting no seizure-like activity described. She denies any headache vision changes scintillations chest pain or palpitations before and after the event. During my interview patient stated that she is currently feeling much better after IV fluids and does not have any complaints. She unfortunately hurt her head with this fall and she does have small hematoma on the right side of her forehead but she currently denies any headache or vision changes. In the emergency department, found to have a blood cell count 24,000 with predominance of neutrophils. Stable hemoglobin. Creatinine of 1.7 beats BUNs of 67 normal anion gap serum bicarbonate of 37 and sodium 10/30/1929 and chloride of 89. Patient denied any previous history of renal insufficiency. Imaging: CT of the head without any acute intracranial changes. She does have small right frontal scalp hematoma. CT of the cervical and thoracic spine showing T5 vertebral body collapse chronically in nature. Questionable artifact versus subtle nondisplaced fracture and C7 vertebral body which could be acute or chronic clinical correlation advised. Other changes as per report Interval history: 02/22 patient seen and examined. No acute changes. Agent is currently stable for discharge to subacute rehab facility. Insurance authorization obtained per case management Objective - Vital Signs Vital signs: Vital Signs Temp 97.9 F 02/22/22 04:00 Pulse 92 02/22/22 12:00 Resp 16 02/22/22 12:00 BP 123/58 02/22/22 12:00 Pulse Ox 100 02/22/22 12:00 Intake & Output 02/21/22 02/22/22 02/22/22 18:59 06:59 18:59 Intake Total 0 180 Output Total 300 400 Balance 0 -300 -220 Intake: Oral 0 180 Output: Urine 300 400 Other: # Voids 1 0 - Exam Awake alert oriented 2 Head and neck: Small right sided frontal scalp hematoma no skull depressions or excoriations Anicteric sclera and oropharyngeal mucosa moist without any lesions no neck masses no JVD Neck supple without any point tenderness without rigidity Lungs: Clear to auscultation Cardiovascular: Regular rhythm and rate S1 posterior Abdomen: Bowel sounds present throughout, abdomen is soft nontender nondistended no organomegaly no masses, no suprapubic tenderness no flank tenderness right upper quadrant tenderness Extremities: No peripheral edema no cyanosis warm well perfused DP pulses present bilateral Musculoskeletal: No deformities Neurological: Awake alert oriented 3, cranial nerves II through XII intact, motor strength is 5 out of 5 in upper and lower extremities proximally and distally, no ankle clonus , nontender reflexes laxer bilateral, sensitivity to light touch in upper limits immitis preserved no asterixis [id number] intact - Labs CBC & Chem 7: 02/22/22 07:38 02/22/22 07:38 Labs: Abnormal Lab Results - Last 24 Hours (Table) 02/22/22 02/22/22 Range/Units 07:38 07:38 RBC 3.15 L (3.80-5.40) m/uL Hgb 10.2 L (11.4-16.0) gm/dL Hct 30.5 L (34.0-46.0) % Plt Count 128 L (150-450) k/uL Lymphocytes # 0.7 L (1.0-4.8) k/uL Glucose 52 L (74-99) mg/dL Calcium 8.2 L (8.4-10.2) mg/dL Magnesium 1.5 L (1.6-2.3) mg/dL ALT 37 H (4-34) U/L Total Protein 5.1 L (6.3-8.2) g/dL Albumin 2.6 L (3.5-5.0) g/dL Microbiology - Last 24 Hours (Table) 02/15/22 09:51 Blood Culture - Final Blood No Growth after 144 hours 02/15/22 09:35 Blood Culture - Final Blood No Growth after 144 hours Assessment and Plan (1) Syncope Current Visit: Yes Status: Acute Code(s): R55 - SYNCOPE AND COLLAPSE SNOMED Code(s): 189413382 Plan: Assessment and plan: #Fall and presyncope Patient presents with hypotension, component of vasovagal reaction, orthostasis in the setting of diuresis dehydration multiple blood pressure medications Improved with IV fluid Holding blood pressure medications, holding Lasix #Anteriorsuperior nondisplaced fracture, C7 vertebral body; T5 vertebral compression fracture, chronic -per Orthopedic Surgery no need for urgent surgical intervention -Patient wearing cervical collar -Outpatient follow up with ortho #New-onset A. fib with RVR -Rate is controlled -Cardiology following on Multaq and Eliquis 2.5 twice daily #SIRS, leukocytosis rule out sepsis Reactive due to use of systemic steroids and dehydration Septic workup, blood cultures came back negative UA with cultures Chest x-ray without acute findings Per infectious disease CT of abdominal pelvis with oral contrast did show exten sive diverticulosis and possible colitis likely the source of elevated white count 3- patient initial clinical improvement in the white count is normalized. Patient completing a course of antibiotics with Unasyn in the hospital and on discharge Augmentin #Elevated troponin No active chest pain No acute EKG findings The patient asymptomatic Echocardiogram echo with mild left ventricular concentric hypertrophy with preserved LV function. Mitral annular calcification and thickened aortic valve leaflets. Mild tricuspid regurgitation. No pericardial effusion Keep on telemetry #Acute kidney injury Suspected to be prerenal injury now resolved #Chronic hypoxic respiratory failure COPD without acute exacerbation, on home oxygen 34 liters Continue oxygen, continue nebulizers #Elevated liver enzymes Normal bilirubin and alkaline phosphatase #Closed head trauma Due to fall Patient to continue to wear C-spine brace follow-up outpatient with orthopedic surgery team. No evidence of brain bleed #Overcorrected Hypothyroidism -Low TSH present on admission -levothyroxine was decreased from 50 g daily to 37.5 g -Patient will need repeat TSH in 6-8 weeks after discharge DVT prophylaxis SCDs Patient will need more than 2 minutes hospital stay
== END 2022-02-22 13:30 | DRG 312 ==
LOC: EC 07:24 → 3SCARD 09:25
PROVIDERS: ADMIT Hospitalist; ATTEND Hospitalist
DX: I95.2 Hypotension due to drugs (principal); I47.1 Supraventricular tachycardia; I47.2 Ventricular tachycardia; J96.11 Chronic respiratory failure with hypoxia; M48.54XA Collapsed vertebra, not elsewhere classified, thoracic region, initial encounter for fracture; N17.9 Acute kidney failure, unspecified; W19.XXXA Unspecified fall, initial encounter; E03.9 Hypothyroidism, unspecified; E78.5 Hyperlipidemia, unspecified; E86.0 Dehydration; E86.1 Hypovolemia; E87.6 Hypokalemia; E87.70 Fluid overload, unspecified; F41.9 Anxiety disorder, unspecified; I07.1 Rheumatic tricuspid insufficiency; I10 Essential (primary) hypertension; I25.10 Atherosclerotic heart disease of native coronary artery without angina pectoris; I25.2 Old myocardial infarction; I48.91 Unspecified atrial fibrillation; I73.00 Raynaud's syndrome without gangrene; J44.9 Chronic obstructive pulmonary disease, unspecified; K57.90 Diverticulosis of intestine, part unspecified, without perforation or abscess without bleeding; S00.03XA Contusion of scalp, initial encounter; S00.31XA Abrasion of nose, initial encounter; S00.81XA Abrasion of other part of head, initial encounter; Z79.02 Long term (current) use of antithrombotics/antiplatelets; Z79.890 Hormone replacement therapy; Z79.899 Other long term (current) drug therapy; Z85.3 Personal history of malignant neoplasm of breast; Z87.891 Personal history of nicotine dependence; Z90.710 Acquired absence of both cervix and uterus; Z99.81 Dependence on supplemental oxygen; R77.8 Other specified abnormalities of plasma proteins; K52.9 Noninfective gastroenteritis and colitis, unspecified; R74.8 Abnormal levels of other serum enzymes
CPT/HCPCS: 36415; 70450; 71045; 72125; 72170; 74021; 74176; 80053; 80074; 81001; 83605; 83735; 84100; 84132; 84439; 84443; 84484; 85025; 85379; 85610; 85730; 87040; 93005; 93306; 94640; 96374; 99285